=== PATIENT | male | born 1985 | race Caucasian/White ===

== ENCOUNTER 2020-01-13 09:42 | Emergency (ER) | payer OTHER, MEDICAID, SELFPAY ==
[2020-01-13 09:48] VITALS: BP 148/84; PULSE 78; RESP 16; TEMP 36.2; O2SAT 98
--- NOTE | 2020-01-13 10:12 | W.ED.GENAD ---
Discharge Plan Disposition Patient Disposition: HOME Condition: Stable Discharge Details Chief Complaint: Sorethroat Clinical Impression: Flu Primary Care Provider: Abdoul Briceño ED Provider: Felix Resendiz Discharge Instructions Instructions: Influenza (ED) Additional Instructions: Flu be positive. Negative rapid strep, culture pending. [id number] medications as directed for symptomatic control. Rest. Plenty of fluids to avoid dehydration. Please watch for new or worsening symptoms and return to the ER for any concerns. You should avoid public places until he has been asymptomatic for 24 hours as the flu is highly contagious. Discharge Data Discharge Date/Time-TO BE ENTERED AT DEPARTURE: 01/13/20 10:51 Medical Decision Making 34-year-old male presenting with febrile illness, cough, ear pain, sore throat, myalgias for 4 days. He appears well, nontoxic. The patient does make his expectations known, he would like antibiotics. I explained to him that this very well could be viral and antibiotics would not be appropriate. He is primarily concerned for strep throat so we can test for that problem also test for the flu. Lungs are clear to auscultation, O2 sats are 98% on room air, and he is afebrile, low suspicion for pneumonia, will not obtain chest x-ray. Flu B+, rapid strep negative, culture pending. Discussed findings with patient. Discussed that he is outside the window for Tamiflu therapy and there is no clear indication for antibiotic therapy. He does understand that throat culture is pending and if positive he will be notified for antibiotics Medical Records Medical records reviewed: Yes I reviewed the patient's medical records. Lab Data Lab results reviewed: Yes I reviewed the patient's lab results. Lab results narrative: 01/13/20 09:58 Nose Influenza Types A,B Antigen - Final 01/13/20 09:50 Pharynx Streptococcus Screen (BOOGIE) - Pending HPI General Mode of arrival: ambulatory. Date/Time Provider Initiated Documentation: 01/13/20 09:53. Limitations to Documentation: no limitations. Information obtained by: patient. HPI Narrative: Patient reports a 4-day history of mild dry cough, bilateral ear pain and pressure and a sore throat. He reports seeing white spots on his throat and reports whenever I get this I need antibiotics to feel better. Patient did take ibuprofen around 830 this morning. Patient denies any significant past medical history. Reports myalgias as well. He does not smoke. Denies any recent sick contacts Denies abdominal pain, nausea, vomiting Related Data Allergies Allergy/AdvReac Type Severity Reaction Status Date / Time No Known Allergies Allergy Unverified 01/13/20 09:51 General Stated Complaint: Sorethroat MICHELLE: 4 Review of Systems Constitutional Constitutional: Reports fatigue, Reports fever(s) and Denies headache(s) Eyes Eyes: Denies eye discharge ENT Ears, Nose, Mouth, and Throat: Reports otalgia, Denies headache(s) and Reports sore throat Cardiovascular Cardiovascular: Denies chest pain and Denies dyspnea Respiratory Respiratory: Reports cough and Denies dyspnea Gastrointestinal Gastrointestinal: Denies abdominal pain, Denies nausea and Denies vomiting Musculoskeletal Musculoskeletal: Reports myalgias Integumentary/Breasts Skin/Breast: Denies rash Neurologic Neurologic: Denies headache(s) Endocrine Endocrine: Reports fatigue REPLACED BY [facility] Social History Smoking/Tobacco Use Status: Never Drug use: Never Substance use type: does not use Do you feel safe at home: Yes Do you feel safe in your relationship?: Yes Exam Const General: cooperative, healthy appearing, comfortable and no acute distress Orientation: alert and awake HENMT Head: normal to inspection, normocephalic and atraumatic Ears: external ears normal, TM's normal bilaterally and TM normal on the left Mouth: moist mucous membranes Teeth and gingiva: dentition normal Throat: tonsils normal, posterior oropharynx abnormal (Minimal) erythema and exudates, uvula not displaced and no uvular edema Eyes Conjunctivae: conjunctivae normal Neck Neck: normal visual inspection, full ROM, no lymphadenopathy, no meningeal signs, trachea midline and supple Resp Effort & Inspection: normal respiratory effort and able to speak in complete sentences Auscultation: clear to auscultation bilaterally Cardio Rate: regular rate Rhythm: regular rhythm Skin General skin exam: no rashes or lesions noted Neuro General: alert, awake, moves all extremities and no focal motor deficits Motor: muscle tone normal throughout Sensory Exam: no sensory deficits noted Extrem General: normal to inspection Psych Appearance: grossly normal Mental Status: mental status grossly normal Course Vital Signs Vital signs: Vital Signs Temperature 36.2 C L 01/13/20 09:48 Pulse 78 01/13/20 09:48 Respiratory Rate 16 01/13/20 09:48 Blood Pressure 148/84 H 01/13/20 09:48 Pulse Oximetry 98 01/13/20 09:48 Temperature 36.2 C L 01/13/20 09:48 Temperature Source Tympanic 01/13/20 09:48 Pulse 78 01/13/20 09:48 Respiratory Rate 16 01/13/20 09:48 Respiratory Effort Non-Labored 01/13/20 09:52 Blood Pressure 148/84 H 01/13/20 09:48 Blood Pressure Position Sitting 01/13/20 09:48 Pulse Oximetry 98 01/13/20 09:48 Oxygen Delivery Method Room Air 01/13/20 09:48 Oxygen Flow Rate 0 01/13/20 09:48 Pain Level 8 01/13/20 09:48 Lab/Test Results Lab/Test Results: 01/13/20 09:58 Nose Influenza Types A,B Antigen - Pending POC Strep Test-JOCELYN(Rapid) Start: 01/13/20 09:54 Freq: .Rapid Strep Test Status: Active Protocol: Document 01/13/20 09:54 (Rec: 01/13/20 09:54 [id number]) Strep test-JOCELYN(Rapid)-POC POC-Strep test-JOCELYN (Rapid) Negative POC-Strep test-JOCELYN (Rapid) Negative
[2020-01-13 10:48] VITALS: BP 138/62; PULSE 73; RESP 18; TEMP 36.4; O2SAT 98
== END 2020-01-13 10:51 | disposition home or self-care (01) ==
PROVIDERS: Emergency Provider Physician Assistant; PCP Internal Medicine
DX: J10.1 Influenza due to other identified influenza virus with other respiratory manifestations (principal)
CPT/HCPCS: 87449; 87880; 99282; 87081; 99283

== ENCOUNTER 2020-04-08 19:41 | Emergency (ER) | payer OTHER, MEDICAID, SELFPAY ==
--- NOTE | 2020-04-08 19:45 | DI.RAD_ITS ---
EXAM: XR ANKLE LT COMPLETE CLINICAL HISTORY: pain, injury mid to distal gillespie TECHNIQUE: 2D digital imaging was performed. COMPARISON: CR RIGHT ANKLE COMPLETE from 05/27/2010 FINDINGS: There is soft tissue swelling around the malleoli, greater medially. There is slight deformity of th e distal fibula which could indicate an old fracture deformity. No ankle mortise widening or talar d ome defect is seen. IMPRESSION: No acute fracture is identified. Soft tissue swelling.
--- NOTE | 2020-04-08 19:45 | DI.RAD_ITS ---
EXAM: XR TIB/FIB LT CLINICAL HISTORY: pain TECHNIQUE: 2D digital imaging was performed. COMPARISON: CR RIGHT TIB/FIB from 05/27/2010 FINDINGS: There is a spiral fracture of the proximal fibula with slight displacement and no significant angula tion. There is some deformity of the mid to distal fibula, consistent with an old healed fracture. No tibial fracture is seen. The knee and ankle are unremarkable as visualized. There is a metallic foreign body in the soft tissues of the posterior upper calf region. IMPRESSION: Mildly displaced proximal fibular fracture. BB in the soft tissues of the upper calf.
[2020-04-08 19:46] VITALS: BP 142/77; PULSE 78; RESP 14; TEMP 37; O2SAT 98
--- NOTE | 2020-04-08 19:52 | ED.GENADUL_ITS ---
Discharge Plan Disposition Patient Disposition: HOME Condition: Stable Discharge Details Chief Complaint: Orthopedic Clinical Impression: Fibula fracture Primary Care Provider: Abdoul Briceño ED Provider: Linda Rubio Discharge Instructions Instructions: Leg Fracture (ED) Additional Instructions: Rest. Activities as tolerated. Elevate injury to prevent swelling. Ice to the area of discomfort for 15 min. 3-5 times daily. Motrin every 8 hours with food or Tylenol every 6 hours for soreness if needed over the counter for comfort. Limit weightbearing. Use fracture boot and crutches as discussed Followup with orthopedic doctor as discussed for reevaluation. Call orthopedic doctor for reevaluation. Return for any worsening or concerns sooner if needed. Referrals: Milad Crawford MD [ [facility]AFF PHYSICIAN] - Discharge Data Discharge Date/Time-TO BE ENTERED AT DEPARTURE: 04/08/20 20:55 Medical Decision Making 34-year-old patient presents to the emergency room with complaints of left lower leg pain after he landed wrong after he began to get dragged by his horse whom he had a hold of by the main. Patient reports he felt a snap in his left lower leg. He is presenting to the emergency room concern for possible fracture. Patient has mid to distal tib-fib tenderness and mild ankle pain with palpation. No open wounds. Compartments are soft. Distal neurovascularly intact. Sensation intact. Benign foot exam. Patient's pulses are intact. We will plan to check x-ray of patient's tib-fib and ankle. Patient offered Motrin or Tylenol declines at this time. Patient has no other focal complaints or other injuries reported. Patient's x-ray results reviewed. Spoke with the patient regarding his x-ray results. Patient made aware of fracture findings and concern for possible nondisplaced posterior malleolus fracture. On reviewing patient's images his ankle mortise appears grossly intact. Spoke with Dr. Crawford regarding patient's x-ray findings. He recommends regarding the posterior and distal fibular fracture and concern of a possible malleolus injury a fracture boot, crutches and follow-up in the office. He does report patient is able to bear mild weight if he chooses. Spoke with patient regarding these recommendations. Patient reports he has crutches, reports he is a fracture boot. Patient requests only to see his images. I offered multiple ways for this patient to get access to his images have offered to make him a disc for home. Patient insisting on me emailing him the images. I am unable to email this patient images given our technology. Patient extremely agitated regarding my options for providing x-ray views. Patient walking around the emergency room without splinting. Patient becoming quite aggressive and agitated. patient provided discharge instructions. The patient was stable and requested discharge. Prior to discharge, my usual and customary return precautions were reviewed with the patient - this included follow-up instructions and reasons to return to the Emergency Department if conditions worsens, does not improve as expected, or other new concerns arise. HPI General Date/Time Provider Initiated Documentation: 04/08/20 19:43 . HPI Narrative: This is a 34-year-old patient presenting to the emergency room for complaints of left lower leg injury. Patient reports he grabbed his horses kirill and his horse ran off. Patient's leg landed wrong on the ground he felt a snap in his distal and mid gillespie. Patient is concerned that he fractured his lower leg. Patient denies striking his head neck or back. Patient denies any significant fall to the ground. Patient denies upper extremity injury. Denies any right leg injury. Has no chest pain, difficulty breathing shortness of other wheezing. Denies any cough. Denies abdominal pain or distention. Denies any sites of bruising or wounds. Patient denies numbness, tingling or weakness. Difficulty ambulating as left lower leg seems unstable. Patient specifically points to the mid to distal gillespie as site of maximum pain. Patient does complain of mild ankle pain. Denies any foot pain associated. Denies any pain proximal to the knee. No other concerns or complaints at this time. Related Data Allergies Allergy/AdvReac Type Severity Reaction Status Date / Time No Known Allergies Allergy Unverified 01/13/20 09:51 General Stated Complaint: Orthopedic MICHELLE: 4 Review of Systems All systems reviewed & are unremarkable except as noted in HPI and below [facility] Social History Smoking/Tobacco Use Status: Never Drug use: Never Substance use type: does not use Do you feel safe at home: Yes Do you feel safe in your relationship?: Yes Exam Narrative Exam Narrative: CONST: Healthy appearing patient, in no acute distress. Well hydrated. Alert and oriented. EYES: General normal appearance. Alignment normal. Eyelids normal. Conjunctiva normal. NECK: Normal visual inspection. FROM. Trachea midline. No Midline tenderness. CHEST: Normal insepection of the chest. RESP: Normal respiratory effort. Speaking full sentences. No cough. No audible wheezing. No retractions. CARDIO: No JVD. Back: No midline tenderness noted throughout the cervical, thoracic or lumbar spine. MUSCULOSKELETAL: Normal Gait. FROM of upper extremities. Right leg benign. Left leg internal/external rotation of the hip without pain. No femur pain with palpation. No knee pain with palpation. No proximal tib-fib pain with palpation. Mid and distal pain with palpation of the lower leg. Calf is soft and nontender. No significant Achilles tenderness. Achilles tendon intact. Mild medial lateral ankle pain with palpation. No foot pain noted on exam. P atient has intact dorsal pedis pulse. No open wounds. Sensation intact throughout the foot. SKIN: Normal. Dry. No rashes. NEURO: Alert and awake. Speech clear. PSYCH: Normal affect. Cooperative. Course Vital Signs Vital signs: Vital Signs Temperature 37.0 C 04/08/20 19:46 Pulse 78 04/08/20 19:46 Respiratory Rate 14 04/08/20 19:46 Blood Pressure 142/77 H 04/08/20 19:46 Pulse Oximetry 98 04/08/20 19:46 Temperature 37.0 C 04/08/20 19:46 Temperature Source Skin 04/08/20 19:46 Pulse 78 04/08/20 19:46 Respiratory Rate 14 04/08/20 19:46 Blood Pressure 142/77 H 04/08/20 19:46 Blood Pressure Position Sitting 04/08/20 19:46 Pulse Oximetry 98 04/08/20 19:46 Oxygen Delivery Method Room Air 04/08/20 19:46 Oxygen Flow Rate 0 04/08/20 19:46 Pain Level 9 04/08/20 19:46
--- NOTE | 2020-04-08 20:24 | DI.VRAD_ITS ---
PROCEDURE INFORMATION: Exam: XR Left Ankle Exam date and time: 04/08/2020 7:59 PM Age: 34 years old Clinical indication: Ankle and lower leg; Left; Patient HX: Pain, injury to lateral lower leg TECHNIQUE: Imaging protocol: XR Left ankle. Views: 3 or more views. COMPARISON: No relevant prior studies available. FINDINGS: Bones/joints: There appears to be a nondisplaced oblique fracture of the distal fibula. No dislocation. There is mild cortical irregularity along the posterior tibia on the lateral view. Soft tissues: There is [id number] soft tissue swelling. IMPRESSION: 1. Distal fibula fracture. 2. Cannot exclude a nondisplaced posterior malleolus fracture. Dictated and Authenticated by: Vance Buck MD. Ordering:THOMAS Mckeon MD
--- NOTE | 2020-04-08 20:24 | DI.VRAD_ITS ---
PROCEDURE INFORMATION: Exam: XR Left Tibia and Fibula Exam date and time: 04/08/2020 8:01 PM Age: 34 years old Clinical indication: Left; Patient HX: Pain, injury to lateral lower leg TECHNIQUE: Imaging protocol: XR Left tibia and fibula. Views: 2 views. COMPARISON: No relevant prior studies available. FINDINGS: Bones/joints: There is a mildly displaced oblique fracture of the proximal fibula. Soft tissues: There is a 4 mm radiopaque foreign body within the calf. IMPRESSION: 1. Proximal fibula fracture 2. Radiopaque foreign body Dictated and Authenticated by: Vance Buck MD. Ordering:THOMAS Mckeon MD
== END 2020-04-08 20:55 | disposition home or self-care (01) ==
PROVIDERS: Emergency Provider Physician Assistant; PCP Internal Medicine
DX: S82.442A Displaced spiral fracture of shaft of left fibula, initial encounter for closed fracture (principal); X50.9XXA Other and unspecified overexertion or strenuous movements or postures, initial encounter; R45.1 Restlessness and agitation
CPT/HCPCS: 29515; 99284; 73590; 73610; L4361

== ENCOUNTER 2020-04-25 09:15 | Outpatient (CLI) | payer OTHER, MEDICAID, SELFPAY ==
--- NOTE | 2020-04-25 09:00 | DI.RAD_ITS ---
EXAM: XR TIB/FIB LT and XR ankle LT 2 V CLINICAL HISTORY: f/u. TECHNIQUE: 2D digital imaging was performed COMPARISON: CR,XR XR ANKLE LT COMPLETE from 04/08/2020 CR,XR XR TIB/FIB LT from 04/08/2020 FINDINGS: BONES: There has been no change in alignment of the mildly displaced proximal left fibular fracture. There is a longitudinal lucency through the posterior malleolus suspicious for nondisplaced fracture . No bony destructive lesion is seen. Visualized portion of knee and ankle joints are unremarkable. SOFT TISSUE: The small BB in the soft tissues of the posterior upper calf is again noted. IMPRESSION: 1. Stable mildly displaced proximal left fibular fracture. 2. Findings suspicious for nondisplaced posterior malleolar fracture. DATA REPOSITORY: RADIATION DOSE DELIVERED:
== END 2020-04-25 09:35 ==
PROVIDERS: PCP Internal Medicine; Referring Provider Internal Medicine; Visit Provider Orthopaedic Surgery
DX: S82.442D Displaced spiral fracture of shaft of left fibula, subsequent encounter for closed fracture with routine healing (principal); S99.912A Unspecified injury of left ankle, initial encounter; M89.8X7 Other specified disorders of bone, ankle and foot
CPT/HCPCS: 73590; 73600

== ENCOUNTER 2020-04-25 11:27 | Outpatient (CLI) | payer OTHER, MEDICAID, SELFPAY ==
[2020-04-26 19:08] LABS: COVID-19 RT-PCR UVMMC Result Negative (Negative)
== END 2020-04-25 11:47 ==
PROVIDERS: PCP Internal Medicine; Visit Provider Orthopaedic Surgery
DX: Z11.59 Encounter for screening for other viral diseases (principal); Z01.818 Encounter for other preprocedural examination
CPT/HCPCS: U0003

== ENCOUNTER 2020-04-26 11:17 | Day surgery (SDC) | payer OTHER, MEDICAID, SELFPAY ==
[2020-04-26 11:38] VITALS: BP 148/100; PULSE 78; RESP 20; TEMP 36.4; O2SAT 99
[2020-04-26] MEDS: Lactated Ringers 1,000 ML 80 ML IV (12:15)
--- NOTE | 2020-04-26 14:06 | DI.RAD_ITS ---
EXAM: XR ANKLE LT 2V CLINICAL HISTORY: Closed Maisonneuve fracture of LEFT fibula TECHNIQUE: 2D and realtime digital imaging was performed. CONTRAST MATERIAL: Refer to procedure report. COMPARISON: CR XR ANKLE LT 2V from 04/25/2020 FINDINGS: Fluoroscopy was provided for Dr. Crawford during the performance of a fixation of the distal tibial an d fibular syndesmosis.. Please refer to the procedure report for complete details. Fluoro time: 30 seconds IMPRESSION: RADIATION DOSE DELIVERED:
--- NOTE | 2020-04-26 14:11 | W.PM.DSUDISC ---
Discharge Plan Disposition Patient Disposition: HOME Condition: Good Discharge Details Attending Provider: Milad Crawford Primary Care Provider: Abduol Briceño Home Meds and New Rx's Prescriptions: New oxycodone-acetaminophen 5-325 mg tablet 1 tab PO Q6H PRN (Reason: pain) Qty: 10 RF: 0 ibuprofen 800 mg tablet 800 mg PO TID Qty: 30 RF: 0 Continued oxycodone 5 mg tablet 5 mg PO QID PRN (Reason: pain) Qty: 7 RF: 0 ibuprofen 800 mg Tablet 800 mg PO DAILY RF: 0 Discharge Instructions Additional Instructions: Elevate L ankle when sitting. Crutches to walk. May put as much weight on R foot as your discomfort allows. May remove walking boot 3-4 times/day to move R ankle. After 48 hours, remove dressings, shower, and get incisions wet. Leave incisions uncovered when they are dry and sealed. Wear cotton athletic stocking in the brace to absorb perspiration. Follow up with in 2 weeks. Referrals: Milad Crawford MD [ [facility] STAFF PHYSICIAN] - (f/u in 2 weeks.) Equipment/Supplies: Splint Activity:: Activity as Tolerated Remove Dressings/Wound Care:: 48 hours Shower/Bathe:: 48 hours Diet:: As Tolerated Discharge Orders Discharge Orders: Discharge Order (Routine); Ordered 04/26/20 Ordered By: Milad Crawford DS: Diagnosis Discharge Diagnosis (1) Closed Maisonneuve fracture of fibula: Status: Acute
[2020-04-26 14:33] VITALS: BP 156/80; PULSE 69; RESP 20; TEMP 37.2; O2SAT 95
--- NOTE | 2020-04-26 15:43 | W.PM.OP ---
Date of service: 04/26/20 Time of Service: 15:43 Operative Note Operative Note DATE OF PROCEDURE: 04/26/20 PRE-OP DIAGNOSIS: Maisonneuve fracture of fibula left POST-OP DIAGNOSIS: same PROCEDURE: Insertion of 2 syndesmotic screws left ankle SURGEON: Milad Crawford ANESTHESIA: regional and other ESTIMATED BLOOD LOSS: 0 PATHOLOGY: none sent COMPLICATIONS: None Patient was transported to: same day Patient's condition: stable Implants: Two 4.0 mm cancellous screws Indications: Is a 34-year-old white male who was injured try to get on a horse a week ago. While his left foot was planted he sustained the supination external rotation injury to his left ankle. This resulted in a fracture of the proximal fibula with tear of the deltoid ligament. The disruption of the deltoid ligament was confirmed with gravity stress views of the ankle. Close reduction with insertion of a percutaneous syndesmotic screws was recommended to restore the anatomy of the ankle mortise. This would be necessary for good long-term outcome. Risk on case procedure explained to the patient detail preop Procedure Description: Patient was taken the operating room on 04/26/2020 where he was placed supine operating table. Ankle block anesthesia was performed with good anesthesia resulting. A roll was placed under his left buttock. The left foot ankle and lower leg were prepped and draped free in usual sterile fashion. Using a C-arm for localization I marked on the lateral fibula where I made a stab wound about a centimeter long directly down to the bone of the fibula. Again using C-arm image localization I drilled across the fibula and into the tibia parallel to the tibial plafond and just proximal to the old epiphyseal scar on the distal tibia. I did not penetrate the medial cortex of the tibia. I then inserted a 55 mm 4 oh cancellus screw across the fibula into the tibia. The ankle was dorsiflexed by my ophthalmic medical assistant as the cancellus screw was maximally tightened. I checked the ankle mortise with the C-arm image intensifier. The medial clear space had been reduced so was anatomic. I decided to place a second screw more proximally to protect the distal screw. In a similar fashion I inserted a tricortical 4 oh cancellus screw 50 mm long. This was done after making a separate stab wound proximal to the first incision. Under C-arm image intensification guidance I drilled across the fibula into the tibia. I measured the depth and felt a 50 mm length was adequate. The screw was then inserted and maximally tightened with the ankle dorsiflexed again. I then rechecked the first screw and made sure it was still tight and had not loosened. Incisions were irrigated with saline solution. The skin margins were infiltrated with point to 5% Marcaine solution and the I infiltrated the periosteum around the screws as well. The skin edges approximated with a single 4-0 nylon suture for each incision. Incisions were dressed with Xeroform gauze sterile gauze 4 x 4's and wrapped with a 2 inch Henry bandage. I then placed him in a Aircast fracture walking brace. He tolerated suture well was discharged back to day surgery unit in good condition. Patient was discharged home from day surgery unit with instructions to elevate his left ankle when sitting. He is to use crutches to walk and may be weightbearing to tolerance of pain on the left leg. Get a prescription for ibuprofen 800 mg p.o. 3 times daily for 10 days. He is given a second prescription for oxycodone with APAP 03/19/2025 1 tablet every 6 hours as needed for breakthrough pain. In 48 hours he can remove his dressing shower and get incision wet. He may then take his ankle out of the brace 3-4 times a day to perform active range of motion exercises. He should follow-up with Dr. Crawford in 2 weeks.
== END 2020-04-26 15:05 | disposition home or self-care (01) ==
PROVIDERS: PCP Internal Medicine; Visit Provider Orthopaedic Surgery
PROC: (CPT 27829; principal; 2020-04-26 13:00)
DX: S82.863A Displaced Maisonneuve's fracture of unspecified leg, initial encounter for closed fracture (principal); X50.0XXA Overexertion from strenuous movement or load, initial encounter; Y93.52 Activity, horseback riding
CPT/HCPCS: 27829; 76000; 73600; J1885; J2250; J2704; L4361

== ENCOUNTER 2020-05-10 12:11 | Outpatient (CLI) | payer OTHER, MEDICAID, SELFPAY ==
--- NOTE | 2020-05-10 12:00 | DI.RAD_ITS ---
EXAM: XR ANKLE LT COMPLETE CLINICAL HISTORY: f/u TECHNIQUE: COMPARISON: CR XR ANKLE LT 2V from 04/25/2020 XR ANKLE LT 2V from 04/26/2020 FINDINGS: Three views were obtained. There are fixation screws transfixing the tibiofibular joint, no change i n alignment comparison with intraoperative films April 26. The ankle mortise appears within normal limits. IMPRESSION:
== END 2020-05-10 12:31 ==
PROVIDERS: PCP Internal Medicine; Referring Provider Internal Medicine; Visit Provider Orthopaedic Surgery
DX: S82.442D Displaced spiral fracture of shaft of left fibula, subsequent encounter for closed fracture with routine healing (principal)
CPT/HCPCS: 73610

== ENCOUNTER 2020-06-07 09:58 | Outpatient (CLI) | payer OTHER, MEDICAID, SELFPAY ==
--- NOTE | 2020-06-07 09:45 | DI.RAD_ITS ---
EXAM: XR ANKLE LT COMPLETE and XR tib fib LT CLINICAL HISTORY: f/u surgery TECHNIQUE: 2D digital imaging was performed. COMPARISON: CR XR TIB/FIB LT from 04/25/2020 CR XR ANKLE LT COMPLETE from 05/10/2020 FINDINGS: BONES: There has been no change in alignment of the proximal left fibular fracture. There is callus formation about the fracture site consistent with interval healing. Two stable syndesmotic screws ar e seen distally. No bony destructive lesion is seen. No new fracture or dislocation. JOINTS:The ankle mortise is normally aligned. SOFT TISSUE: A BB is again seen in the soft tissues posteriorly. IMPRESSION: Stable left leg and ankle. DATA REPOSITORY: RADIATION DOSE DELIVERED:
== END 2020-06-07 10:18 ==
PROVIDERS: PCP Internal Medicine; Referring Provider Internal Medicine; Visit Provider Orthopaedic Surgery
DX: S82.402D Unspecified fracture of shaft of left fibula, subsequent encounter for closed fracture with routine healing (principal)
CPT/HCPCS: 73590; 73610

== ENCOUNTER 2020-06-26 10:54 | Day surgery (SDC) | payer OTHER, MEDICAID, SELFPAY ==
[2020-06-26 11:01] VITALS: BP 152/100; PULSE 65; RESP 16; TEMP 36.6; O2SAT 99
--- NOTE | 2020-06-26 12:12 | W.PM.DSUDISC ---
Discharge Plan Disposition Patient Disposition: HOME Condition: Good Discharge Details Reason For Visit: Remove screws L ankle Attending Provider: Milad Crawford Primary Care Provider: Abdoul Briceño Home Meds and New Rx's Prescriptions: Continued hydroxyzine HCl 25 mg tablet 25 mg PO QHS PRNRF: 0 ibuprofen 800 mg tablet 800 mg PO TID Qty: 30 RF: 0 Discharge Instructions Additional Instructions: Limit walking on L foot today. Try to elevate L ankle on 1-2 pillows when sitting. Apply icebag to surgical site on outside of L ankle 4 times/day for 1 hour each time to decrease swelling and pain. May remove tabatha wrap, shower, and get dressing wet after 48 hours. Don't take off the clear adhesive dressing. Let the dressing come loose by itself, then you can remove the dressing. Tomorrow, may put weight on L leg as much as discomfort allows. Take ibuprofen for pain. Follow up with in 2 weeks. Stand Alone Forms: Thong Perales (DSU) Referrals: Milad Crawford MD [ [facility] STAFF PHYSICIAN] - (f/u in 2 weeks) Activity:: Activity as Tolerated Remove Dressings/Wound Care:: 72 hours Shower/Bathe:: 48 hours Diet:: As Tolerated Discharge Orders Discharge Orders: Discharge Order (Routine); Ordered 06/26/20 Ordered By: Milad Crawford DS: Diagnosis Discharge Diagnosis (1) Closed Maisonneuve fracture of fibula: Status: Acute
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
== END 2020-06-26 12:33 | disposition home or self-care (01) ==
PROVIDERS: PCP Internal Medicine; Visit Provider Orthopaedic Surgery
PROC: (CPT 20680; principal; 2020-06-26 12:00)
DX: S82.86 Maisonneuve's fracture (principal); Z46.89 Encounter for fitting and adjustment of other specified devices; X58.XXXD Exposure to other specified factors, subsequent encounter; F17.210 Nicotine dependence, cigarettes, uncomplicated
CPT/HCPCS: 20680

== ENCOUNTER 2020-07-11 09:05 | Outpatient (CLI) | payer OTHER, MEDICAID, SELFPAY ==
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
== END 2020-07-11 09:25 ==
PROVIDERS: PCP Internal Medicine; Referring Provider Internal Medicine; Visit Provider Orthopaedic Surgery
DX: S82.402A Unspecified fracture of shaft of left fibula, initial encounter for closed fracture (principal)
CPT/HCPCS: 73590

== ENCOUNTER 2020-08-23 00:05 | Inpatient (IN) | payer OTHER, MEDICAID, SELFPAY ==
[2020-08-23] VITALS (36 sets, daily range): BP systolic 118–154; BP diastolic 55–97; PULSE 61–91; RESP 9–25; TEMP 36.4–37.8; O2SAT 93–100
--- NOTE | 2020-08-23 00:11 | NUR.NOTE ---
Nursing Note: FAST exam performed by Dr Alvarez.
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
[2020-08-23 00:29] LABS: Abs Immature Grans 0.02 10^3/uL (0.0-0.06); Absolute Basophil Count 0.06 10^3/uL (0.0-0.2); Absolute Eosinophil Count 0.21 10^3/uL (0.0-0.7); Absolute Lymphocyte Count 2.78 10^3/uL (1.2-3.4); Absolute Monocyte Count 0.61 10^3/uL (0.1-0.8); Absolute Neutrophil Count 4.55 10^3/uL (1.2-6.7); Basophils % 0.7; Eosinophils % 2.6; HCT 46.1 % (40.0-50.0); HGB 15.8 g/dL (13.5-17.5); Immature Grans % 0.2; Lymphocytes % 33.8; MCH 33.2 pg (27.0-33.0); MCHC 34.3 % (32.0-36.0); MCV 96.8 fL (80-95); Monocytes % 7.4; Neutrophils % 55.3; Nucleated RBC 0 %; Platelet Count 215 10^3/uL (130-400); RBC 4.76 10^6/uL (4.36-5.78); RDW 11.5 % (11.8-14.1); RDW-SD 41.2 fL; WBC 8.23 10^3/uL (4.4-10.8)
[2020-08-23 00:31] LABS: Bilirubin Negative (Negative); Blood Negative (Negative); Clarity Clear (Clear); Glucose Negative (Negative); Ketones Negative (Negative); Leukocyte Esterase Negative (Negative); Nitrite Negative (Negative); Urobilinogen 0.2 EU/dL (Up TO 0.2); pH 5.5 (5-8)
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
[2020-08-23 00:39] LABS: ETHANOL BLOOD 184.7 mg/dL (<3)
[2020-08-23 00:39] LABS: Bacteria Rare HPF (Negative); C & S Indicated? No; Casts 0-2 Hyaline LPF (Negative); Crystals Negative HPF (Negative); Epithelial Cells Rare HPF (Negative); Mucus Trace (Negative); RBC Negative HPF (0-2); WBC Negative HPF (0-5)
[2020-08-23] MEDS: Omnipaque 350 MG/ML 100 ML BTL IJ (00:43)
[2020-08-23 00:44] LABS: ALT 62 U/L (16-63); AST 34 U/L (15-37); Albumin 3.7 g/dL (3.4-5.0); Alkaline Phosphatase 74 U/L (46-116); Anion Gap 8.5 mmol/L (3-11); BUN 7 mg/dL (7-18); Bilirubin, Total 0.5 mg/dL (0.2-1.0); CO2 27.5 mmol/L (21.0-32.0); CREATININE 1.05 mg/dL (0.70-1.30); Calcium 8.6 mg/dL (8.5-10.1); Chloride 101 mmol/L (98-107); Glucose 113 mg/dL (74-106); Lipase 143 U/L (73-393); Potassium 3.8 mmol/L (3.5-5.1); Sodium 137 mmol/L (136-145); Total Protein 6.9 g/dL (6.4-8.2)
[2020-08-23] MEDS: Normal Saline - Diluent 50 ML VIAL IV (00:44)
[2020-08-23 00:46] LABS: *AMPHETAMINES SCREEN URINE Negative (Negative); *BARBITURATES SCREEN URINE Negative (Negative); *BENZODIAZEPINES SCREEN URINE Negative (Negative); Cannabinoids THC Negative (Negative); Cocaine Screen,Urine Negative (Negative); METHADONE URINE SCREEN Negative (Negative); OPIATES URINE SCREEN Negative (Negative)
[2020-08-23 00:49] LABS: Tricyclic Antidepressants Negative (Negative)
[2020-08-23] MEDS: Normal Saline 1,000 ML 1000 ML IV ×2 (00:49→02:32)
--- NOTE | 2020-08-23 00:50 | NUR.NOTE ---
Nursing Note: Gauze placed over left abdomen wound.
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
--- NOTE | 2020-08-23 01:18 | NUR.NOTE ---
Nursing Note: Patient reports brother on his way to get patient to bring him to his house as he has still not been able to get ahold of . Patient reports I'll come back. Dr Hart at bedside for assessment.
[2020-08-23] MEDS: ceFAZolin 500 MG in Normal Saline 50 ML 100 MG IVPB (01:41)
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
[2020-08-23] MEDS: ACETAMINOPHEN 1,000 MG/100 ML BTL 400 MG IVPB (03:55)
[2020-08-23 05:41] LABS: ETHANOL BLOOD 56.9 mg/dL (<3)
[2020-08-23] MEDS: FentaNYL/ROPIvacaine 2 mcg/ml and 0.1% 200 ML CADD Cassette EP ×2 (07:26→23:20)
[2020-08-23] MEDS: Lactated Ringers 1,000 ML 30 ML IV (07:35)
[2020-08-23] MEDS: ceFAZolin 2 GM/50 ML BAG IVPB ×3 (07:35→23:18)
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
[2020-08-23] MEDS: Lactated Ringers 1,000 ML 125 ML IV ×2 (10:35→19:00)
[2020-08-23] MEDS: Enoxaparin 40 MG/0.4 ML SYR SC (11:50)
--- NOTE | 2020-08-23 12:15 | RT.EKG_ITS ---
APPROVED REPORT Exam: Resting ECG Patient Location: I HR:70 bpm ECG Measurements Heart Rate 70 AXIS ID 136 P 29 QRSd 88 QRS 81 QT 387 T 48 QTc 416 Conclusion Sinus rhythm...normal P axis, V-rate 60- 99
[2020-08-23] MEDS: LORazepam 2 MG/ML VIAL 1 MG IVP ×2 (14:29→20:18)
[2020-08-23] MEDS: Normal Saline Flush 10 ML SYR (20:18)
[2020-08-24] VITALS (39 sets, daily range): BP systolic 130–169; BP diastolic 68–88; PULSE 72–118; RESP 16–32; TEMP 36.8–38.2; O2SAT 85–98
[2020-08-24] MEDS: Lactated Ringers 1,000 ML 125 ML IV (02:52)
[2020-08-24] MEDS: LORazepam 2 MG/ML VIAL 1 MG IVP ×2 (03:02→23:44)
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
[2020-08-24 06:26] LABS: Abs Immature Grans 0.07 10^3/uL (0.0-0.06); Absolute Basophil Count 0.04 10^3/uL (0.0-0.2); Basophils % 0.2; Eosinophils % 0.1; HCT 44.9 % (40.0-50.0); HGB 15.5 g/dL (13.5-17.5); Immature Grans % 0.4; MCH 33.7 pg (27.0-33.0); MCHC 34.5 % (32.0-36.0); MCV 97.6 fL (80-95); MPV 9.5 fL (8.0-11.0); Monocytes % 4.8; Neutrophils % 84.5; Nucleated RBC 0 %; Platelet Count 179 10^3/uL (130-400); RDW 11.6 % (11.8-14.1); WBC 19.33 10^3/uL (4.4-10.8)
[2020-08-24 06:34] LABS: Absolute Eosinophil Count 0.02 10^3/uL (0.0-0.7); Absolute Lymphocyte Count 1.93 10^3/uL (1.2-3.4); Absolute Monocyte Count 0.93 10^3/uL (0.1-0.8); Absolute Neutrophil Count 16.33 10^3/uL (1.2-6.7)
[2020-08-24 06:39] LABS: ALT 36 U/L (16-63); AST 21 U/L (15-37); Alkaline Phosphatase 56 U/L (46-116); Anion Gap 7.6 mmol/L (3-11); BUN 7 mg/dL (7-18); Bilirubin, Total 1.1 mg/dL (0.2-1.0); CO2 28.4 mmol/L (21.0-32.0); CREATININE 1.02 mg/dL (0.70-1.30); Calcium 8.6 mg/dL (8.5-10.1); Chloride 103 mmol/L (98-107); Glucose 104 mg/dL (74-106); Potassium 3.5 mmol/L (3.5-5.1); Sodium 139 mmol/L (136-145); Total Protein 6.2 g/dL (6.4-8.2)
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
[2020-08-24 08:15] LABS: COVID-19 RT-PCR UVMMC Result Negative (Negative)
[2020-08-24] MEDS: ceFAZolin 2 GM/50 ML BAG IVPB ×3 (08:23→23:32)
[2020-08-24] MEDS: MULTIVITAMIN 10 ML, THIAMINE 100 MG, FOLIC ACID 1 MG in DEXTROSE 5%-0.45% SALINE 1,000 ML 42 ML IV (09:02)
[2020-08-24] MEDS: FentaNYL/ROPIvacaine 2 mcg/ml and 0.1% 200 ML CADD Cassette EP ×2 (10:24→20:47)
--- NOTE | 2020-08-24 10:50 | ANES_ITS ---
Date of service: 08/24/20 Time of Service: 10:51 Anesthesia Note Report Anesthesia Note: Epidural maintenance: Pt is in bed with HOB at 45, sleeping. Currently states abdominal pain is ~4- 5/10, and that his shoulder pain is worse. Site is clean/dry/intact with no signs or symptoms of infection. States that when he hits the button for a bolus dose that it does help. He has used 9 PCEA doses in the past 8 hours. Plan to leave infusion (12 ml/hr) and bolus dose (5 mL/15 min) as is and reassess as needed. Discussed plan with RN and pt.
[2020-08-24] MEDS: Lactated Ringers 1,000 ML 83 ML IV (11:55)
[2020-08-24] MEDS: Enoxaparin 40 MG/0.4 ML SYR SC (11:55)
--- NOTE | 2020-08-24 12:41 | PGE_ITS ---
Date of Service Date of service: 08/24/20 Time of Service: 09:45 Assessment and Plan Assessment and plan (1) Descending colon injury: Status: Acute Assessment and plan: Stable, will transfer to Med/Surg D/C NG but keep NPO except few ice chips Advised to ambulate Await bowel activity Subjective Subjective Interval history since last seen: Reports intermittent pain in lower bilateral chest that radiates to shoulders. Incisional pain controlled with epidural Has been taking in a fair amount of ice chips. No flatus yet Exam Narrative Exam Narrative: Uncomfortable mostly related to NG Dressing intact, stable spotting. Abdomen not distended. Objective Last Vital Signs Temp 98.4 F 08/24/20 12:01 Pulse 90 08/24/20 10:01 Resp 21 08/24/20 11:00 BP 169/68 H 08/24/20 10:01 Pulse Ox 94 08/24/20 12:01 Laboratory Results - last 24 hr 08/23/20 08/24/20 08/24/20 07:00 06:15 06:15 WBC 19.33 H RBC 4.60 Hgb 15.5 Hct 44.9 MCV 97.6 H MCH 33.7 H MCHC 34.5 RDW 11.6 L Plt Count 179 MPV 9.5 Immature Gran % 0.4 Neutrophils % 84.5 Lymphocytes % 10.0 Monocytes % 4.8 Eosinophils % 0.1 Basophils % 0.2 Nucleated RBC % 0 Absolute Neutrophils 16.33 H Absolute Lymphocytes 1.93 Absolute Monocytes 0.93 H Absolute Eosinophils 0.02 Absolute Basophils 0.04 Sodium 139 Potassium 3.5 Chloride 103 Carbon Dioxide 28.4 Anion Gap 7.6 BUN 7 Creatinine 1.02 Estimated GFR/1.73 m2 >= 60.00 Glucose 104 Calcium 8.6 Total Bilirubin 1.1 H AST 21 ALT 36 Alkaline Phosphatase 56 Total Protein 6.2 L Albumin 3.0 L COVID-19 PCR Negative Nasopharyn COVID-19 PCR Not Applicable Ref Test Perform Site [place] [facility]
[2020-08-24] MEDS: ACETAMINOPHEN 1,000 MG/100 ML BTL 400 MG IVPB (15:35)
[2020-08-24] MEDS: Normal Saline Flush 10 ML SYR IVP (23:45)
[2020-08-25] VITALS (13 sets, daily range): BP systolic 133–151; BP diastolic 81–95; PULSE 71–93; RESP 16–20; TEMP 36–37.8; O2SAT 94–99
[2020-08-25] MEDS: Lactated Ringers 1,000 ML 125 ML IV ×2 (03:17→20:29)
[2020-08-25 06:22] LABS: HCT 43.9 % (40.0-50.0); MCHC 34.2 % (32.0-36.0); MCV 96.7 fL (80-95); MPV 9.3 fL (8.0-11.0); Platelet Count 163 10^3/uL (130-400); RBC 4.54 10^6/uL (4.36-5.78); RDW 11.6 % (11.8-14.1); RDW-SD 41.6 fL; WBC 16.74 10^3/uL (4.4-10.8)
[2020-08-25] MEDS: ceFAZolin 2 GM/50 ML BAG IVPB ×3 (07:35→23:54)
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
[2020-08-25] MEDS: LORazepam 2 MG/ML VIAL 1 MG IVP (08:29)
[2020-08-25] MEDS: ACETAMINOPHEN 1,000 MG/100 ML BTL 400 MG IVPB ×2 (08:51→18:51)
[2020-08-25] MEDS: FentaNYL/ROPIvacaine 2 mcg/ml and 0.1% 200 ML CADD Cassette EP (09:48)
[2020-08-25] MEDS: MULTIVITAMIN 10 ML, THIAMINE 100 MG, FOLIC ACID 1 MG in DEXTROSE 5%-0.45% SALINE 1,000 ML 125 ML IV (10:07)
--- NOTE | 2020-08-25 10:29 | ANES_ITS ---
Date of service: 08/25/20 Time of Service: 10:29 Anesthesia Note Report Anesthesia Note: Epidural management: Currently POD 2. Found in bed watching TV, epidural infusing. Denies major pain, highest stated 03/26. shoulder discomfort has passed. He is not sure that the epidural is helping and would like it to come out. States that he feels only the front of his thighs are numb. Educated on benefits of the epidural, along with safe ambulation given legs slightly numb, he would however still like a trial of the epidural off. Epidural was turned off at 1024, and his RN was made aware. Plan to leave off and reassess at the end of the day. RN is aware that she s diane call us to restart at anytime if he is having increased pain. Removal of the epidural also will need to be times with his Lovenox dosing.
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
[2020-08-25] MEDS: Enoxaparin 40 MG/0.4 ML SYR SC (12:59)
[2020-08-25] MEDS: LORazepam 1 MG TAB PO/SL (13:08)
--- NOTE | 2020-08-25 15:28 | CHAPLAIN ---
Messi was resting in bed when I visited. He has moved from ICU to Med/Surg. He said he is feeling better now that his pain is controlled. I explained my role and offered support.
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
[2020-08-25] MEDS: Normal Saline Flush 10 ML SYR IVP ×3 (18:02→20:15)
[2020-08-25] MEDS: LORazepam 1 MG TAB PO (18:02)
[2020-08-26] MEDS: FentaNYL/ROPIvacaine 2 mcg/ml and 0.1% 200 ML CADD Cassette EP (00:24)
[2020-08-26 03:11] VITALS: BP 144/76; PULSE 72; RESP 16; TEMP 37.2; O2SAT 95
[2020-08-26] MEDS: Lactated Ringers 1,000 ML 125 ML IV (04:40)
[2020-08-26 07:00] LABS: Abs Immature Grans 0.03 10^3/uL (0.0-0.06); Absolute Eosinophil Count 0.37 10^3/uL (0.0-0.7); Absolute Lymphocyte Count 1.25 10^3/uL (1.2-3.4); Absolute Neutrophil Count 8.55 10^3/uL (1.2-6.7); Basophils % 0.4; Eosinophils % 3.3; HCT 40.3 % (40.0-50.0); HGB 13.8 g/dL (13.5-17.5); Immature Grans % 0.3; Lymphocytes % 11.2; MCH 33.1 pg (27.0-33.0); MCHC 34.2 % (32.0-36.0); MCV 96.6 fL (80-95); MPV 9.6 fL (8.0-11.0); Monocytes % 8.1; Neutrophils % 76.7; Nucleated RBC 0 %; Platelet Count 170 10^3/uL (130-400); RBC 4.17 10^6/uL (4.36-5.78); RDW 11.5 % (11.8-14.1); RDW-SD 40.9 fL; WBC 11.15 10^3/uL (4.4-10.8)
[2020-08-26 07:05] LABS: Absolute Basophil Count 0.04 10^3/uL (0.0-0.2)
[2020-08-26 07:58] VITALS: BP 142/90; PULSE 76; RESP 18; TEMP 36.9; O2SAT 96
[2020-08-26] MEDS: ceFAZolin 2 GM/50 ML BAG IVPB (08:09)
[2020-08-26] MEDS: MULTIVITAMIN 10 ML, THIAMINE 100 MG, FOLIC ACID 1 MG in DEXTROSE 5%-0.45% SALINE 1,000 ML 125 ML IV (08:52)
[2020-08-26 09:34] VITALS: BP 142/90; PULSE 76; RESP 16; O2SAT 96
[2020-08-26] MEDS: ACETAMINOPHEN 1,000 MG/100 ML BTL 400 MG IVPB (11:44)
[2020-08-26] MEDS: Enoxaparin 40 MG/0.4 ML SYR SC (11:44)
[2020-08-26] MEDS: Normal Saline Flush 10 ML SYR IVP ×4 (11:44→19:43)
[2020-08-26] MEDS: Cyclobenzaprine 10 MG TAB PO (12:33)
--- NOTE | 2020-08-26 13:06 | DI.RAD_ITS ---
EXAM: XR CHEST 2V PA LATERAL CLINICAL HISTORY: temp/s/p lapartomy TECHNIQUE: 2D digital imaging was performed. COMPARISON: CR CHEST 2 VIEWS PA,LAT from 04/25/2017 FINDINGS: MEDIASTINUM: Normal. HEART: Normal. PULMONARY VASCULATURE: Normal. LUNGS: Linear bilateral basilar infiltrates are seen. PLEURAL SPACE: No pleural effusion or pneumothorax. BONE:Within normal limits for the patient's age. OTHER FINDINGS:Normal. IMPRESSION: Linear bilateral basilar infiltrates are seen. This may represent atelectasis. Pneumonia cannot be entirely excluded. DATA REPOSITORY: RADIATION DOSE DELIVERED:
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
[2020-08-26] MEDS: MORPHine 2 MG/ML SYR IVP ×2 (14:50→18:53)
[2020-08-26] MEDS: Ketorolac 30 MG/ML VIAL IVP ×2 (14:50→19:42)
[2020-08-26 15:25] VITALS: BP 146/96; PULSE 69; RESP 19; TEMP 37.1; O2SAT 97
[2020-08-26] MEDS: PIPERACILLIN/TAZO 4.5 GM in Normal Saline 100 ML IVPB (16:41)
[2020-08-26] MEDS: LORazepam 1 MG TAB PO ×2 (16:41→21:23)
[2020-08-26 19:28] VITALS: BP 136/83; PULSE 58; RESP 18; TEMP 37.2; O2SAT 99
[2020-08-26 23:18] VITALS: BP 131/79; PULSE 58; RESP 17; TEMP 36.3; O2SAT 99
[2020-08-27] MEDS: PIPERACILLIN/TAZO 4.5 GM in Normal Saline 100 ML IVPB ×2 (00:36→07:41)
[2020-08-27] MEDS: Normal Saline Flush 10 ML SYR IVP ×3 (00:36→07:41)
[2020-08-27] MEDS: Ketorolac 30 MG/ML VIAL IVP ×2 (02:40→07:41)
[2020-08-27 02:52] VITALS: BP 131/80; PULSE 63; RESP 16; TEMP 36.7; O2SAT 97
--- NOTE | 2020-08-27 07:03 | PDOC.ANES ---
Date of service: 08/26/20 Time of Service: 17:15 Anesthesia Note Report Anesthesia Note: Discussed case with Dr. Salinas at 1300 who informed anesthesia service that patient has requested to have epidural infusion stopped and wishes to have catheter removed. Informed Dr. Becker and floor RN that patient needs to wait 12 hours after prophylactic lovenox dose to safely remove catheter. Plan to pull catheter tomorrow AM.
--- NOTE | 2020-08-27 07:06 | PDOC.ANES ---
Date of service: 08/27/20 Time of Service: 06:55 Anesthesia Note Report Anesthesia Note: Patient at bedside resting comfortably. Discussed planned removed of epidural catheter that had been capped since yesterday afternoon. Tape removed from patient's back and catheter removed with tip intact. Adhesive bandage applied to stie. Area clean and dry. Patient tolerated well. Floor RN informed that catheter was removed and that Lovenox cannot be dosed until 1100, 4 hours after catheter removal.
[2020-08-27 07:22] LABS: C-Reactive Protein 5.57 mg/dL (0.0-0.3)
[2020-08-27 07:43] VITALS: BP 133/79; PULSE 64; RESP 17; TEMP 36.7; O2SAT 97
--- NOTE | 2020-08-27 08:37 | DI.RAD_ITS ---
EXAM: 2D digital imaging was performed. CLINICAL HISTORY: ileus. COMPARISON: No exams were available for comparison TECHNIQUE: Supine and uprightSupine and Lateral views of the abdomen was performed. FINDINGS: LUNG BASES: Plate atelectasis in the right lung base. BOWEL GAS PATTERN: There are scattered mild to moderately dilated loops of small bowel with air-fluid levels. The colon is of normal caliber. FREE AIR: None. CALCIFICATIONS: No radiopaque calcifications. OSSEOUS STRUCTURES: Normal for age. OTHER FINDINGS: Skin lela are seen in the midline. Surgical clips are seen in the right lower jesse drant of the abdomen and overlying the left SI joint. IMPRESSION: Mild to moderately dilated loops of small bowel. This may represent an ileus or possible partial sma ll-bowel obstruction. Please correlate clinically. DATA REPOSITORY: RADIATION DOSE DELIVERED:
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
[2020-08-27 11:18] VITALS: BP 145/94; PULSE 71; RESP 17; TEMP 37.1; O2SAT 99
[2020-08-27 11:21] LABS: Abs Immature Grans 0.02 10^3/uL (0.0-0.06); Absolute Basophil Count 0.04 10^3/uL (0.0-0.2); Absolute Eosinophil Count 0.34 10^3/uL (0.0-0.7); Absolute Monocyte Count 0.69 10^3/uL (0.1-0.8); Basophils % 0.5; Eosinophils % 4.6; HCT 39.9 % (40.0-50.0); HGB 13.5 g/dL (13.5-17.5); Immature Grans % 0.3; Lymphocytes % 12.2; MCH 33.4 pg (27.0-33.0); MCHC 33.8 % (32.0-36.0); MCV 98.8 fL (80-95); Monocytes % 9.4; Nucleated RBC 0 %; Platelet Count 212 10^3/uL (130-400); RBC 4.04 10^6/uL (4.36-5.78); RDW 11.4 % (11.8-14.1); RDW-SD 41.6 fL; WBC 7.35 10^3/uL (4.4-10.8)
[2020-08-27 11:24] LABS: Absolute Neutrophil Count 5.37 10^3/uL (1.2-6.7)
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
[2020-08-27] MEDS: oxyCODONE 5 MG TAB PO (12:40)
[2020-08-27] MEDS: Enoxaparin 40 MG/0.4 ML SYR SC (12:41)
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
== END 2020-08-27 13:20 | disposition home or self-care (01) | DRG 331 ==
LOC: ER 06:30 → SUR 07:07 → ICU 10:23 → MS 08-24 13:56
PROVIDERS: Internal Medicine; Surgery; Admitting Provider Surgery; Emergency Provider Student in an Organized Health Care Education/Training Program; PCP Internal Medicine; Visit Provider Surgery
PROC: 0DQM0ZZ Repair Descending Colon, Open Approach (ICD-10-PCS; CPT 49000; principal; 2020-08-23 12:30)
DX: S36.532A Laceration of descending [left] colon, initial encounter; W26.0XXA Contact with knife, initial encounter; F10.129 Alcohol abuse with intoxication, unspecified; Y90.6 Blood alcohol level of 120-199 mg/100 ml; F17.210 Nicotine dependence, cigarettes, uncomplicated; Z11.59 Encounter for screening for other viral diseases; Z91.19 Patient's noncompliance with other medical treatment and regimen; I10 Essential (primary) hypertension
CPT/HCPCS: 44604; 36410; 36415; 80053; 80307; 83690; 85027; 86850; 86900; 86901; 87040; 90471; 90686; 96361; 96365; 96367; 99223; 99232; 99238; 99285; J1650; NC; U0003; 71046; 74019; 74177; 80320; 81003; 81015; 85025; 86140; 93005; 93010; J0131; J0690; J1100; J1885; J2060; J2250; J2270; J2405; J2543; J2704; J3010; J3490

== ENCOUNTER 2022-02-04 10:20 | Emergency (ER) | payer MEDICAID, SELFPAY ==
[2022-02-04 10:22] VITALS: BP 164/95; PULSE 94; RESP 16; TEMP 36.5; O2SAT 98
--- NOTE | 2022-02-04 10:30 | DI.RAD_ITS ---
Exam(s) XR SHOULDER LT COMPLETE 2+V EXAM: XR SHOULDER LT COMPLETE 2+V CLINICAL HISTORY: post/ant pain after rotational injury. TECHNIQUE: 2D digital imaging was performed. COMPARISON: No exams were available for comparison FINDINGS: Five views There is no evidence of fracture or dislocation of the glenohumeral joint. No degenerative changes e vident. AC joint is not distracted. No fracture of the coracoid process. There is an osteophytic d ensity evident off the superior aspect of the lateral clavicle and. However, on 1 of the images this appears well-corticated and therefore most probably related to non acute injury. Correlation with site of tenderness is recommended. Subacromial space is not diminished and there are no soft tissue calcifications within the subacromia l space. No ominous osseous lesions. Bone density is age-appropriate. IMPRESSION: DATA REPOSITORY: RADIATION DOSE DELIVERED:
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
[2022-02-04] MEDS: Acetaminophen 325 MG TAB 650 MG PO (10:40)
[2022-02-04] MEDS: Ibuprofen 600 MG TAB PO (10:41)
[2022-02-04 12:08] VITALS: BP 159/81; PULSE 82; RESP 16; TEMP 37; O2SAT 98
[2022-02-04 12:42] VITALS: BP 159/81; PULSE 82; RESP 16; TEMP 37; O2SAT 98
== END 2022-02-04 12:52 | disposition home or self-care (01) ==
PROVIDERS: Emergency Provider Physician Assistant; PCP Internal Medicine
DX: M25.512 Pain in left shoulder (principal); X50.1XXA Overexertion from prolonged static or awkward postures, initial encounter
CPT/HCPCS: 99283; 73030

== ENCOUNTER → 2022-08-23 00:26 | Outpatient (CLI) | payer MEDICAID, SELFPAY ==
--- NOTE | 2022-08-23 07:30 | DI.US_ITS ---
Exam(s) US SCROTUM EXAM: US SCROTUM CLINICAL HISTORY: right testicle pain intermittently for years,n50.811 TECHNIQUE: Ultrasound of the testes performed using grayscale, color, and Doppler imaging. COMPARISON: US US OR ANESTHESIA from 04/26/2020 FINDINGS: RIGHT HEMISCROTUM: The right testicle exhibits normal size and echo architecture with no evidence of intratesticular mas s. Vascular flow was demonstrated within the right testicle, including arterial waveforms. There is an epididymal head cyst measuring 4 x 4 millimeters. There is no ipsilateral hydrocele nor varicocele. LEFT HEMISCROTUM: The left testicle exhibits normal size and echo architecture with no evidence of intratesticular mass . Vascular flow is demonstrated within the left testicle, including arterial waveforms. There is an epididymal head cyst measuring 3 x 3 millimeters. There is no ipsilateral hydrocele or varicocele. IMPRESSION: 1. No evidence of testicular mass nor testicular torsion. 2. Bilateral small epididymal head cysts measuring 3-4 millimeters. 3. No hydroceles nor obvious varicoceles. DATA REPOSITORY:
== END ==
PROVIDERS: PCP Internal Medicine; Visit Provider Nurse Practitioner Gerontology
DX: N50.3 Cyst of epididymis
CPT/HCPCS: 76870

== ENCOUNTER 2023-07-02 21:31 | Outpatient (REF) | payer MEDICAID, SELFPAY ==
[2023-07-02 21:50] LABS: Abs Immature Grans 0.01 10^3/uL (0.0-0.06); Absolute Basophil Count 0.07 10^3/uL (0.0-0.2); Absolute Eosinophil Count 0.13 10^3/uL (0.0-0.7); Absolute Lymphocyte Count 2.14 10^3/uL (1.2-3.4); Absolute Monocyte Count 0.57 10^3/uL (0.1-0.8); Absolute Neutrophil Count 3.57 10^3/uL (1.2-6.7); Basophils % 1.1; HCT 48.3 % (40.0-50.0); HGB 16.7 g/dL (13.5-17.5); Immature Grans % 0.2; MCH 33.3 pg (27.0-33.0); MCHC 34.6 % (32.0-36.0); MCV 96 fL (80-95); MPV 9.7 fL (8.0-11.0); Monocytes % 8.8; Neutrophils % 54.9; Platelet Count 197 10^3/uL (130-400); RBC 5.01 10^6/uL (4.36-5.78); RDW-SD 46.5 fL; WBC 6.49 10^3/uL (4.4-10.8)
[2023-07-02 22:04] LABS: ALT 90 U/L (16-63); AST 57 U/L (15-37); Albumin 4.2 g/dL (3.4-5.0); Alkaline Phosphatase 78 U/L (46-116); Anion Gap 10.1 mmol/L (3-11); BUN 3 mg/dL (7-18); Bilirubin, Total 0.5 mg/dL (0.2-1.0); CO2 27.9 mmol/L (21.0-32.0); CREATININE 0.7 mg/dL (0.70-1.30); Calcium 9.3 mg/dL (8.5-10.1); Chloride 105 mmol/L (98-107); Glucose 88 mg/dL (74-106); Lipase 52 U/L (16-77); Potassium 4.3 mmol/L (3.5-5.1); Sodium 143 mmol/L (136-145); Total Protein 7.4 g/dL (6.4-8.2)
== END 2023-07-02 21:32 | disposition home or self-care (01) ==
LOC: LBN 21:31
PROVIDERS: PCP Internal Medicine; Visit Provider Physician Assistant Medical
DX: M54.89 Other dorsalgia (principal)
CPT/HCPCS: 80053; 83690; 85025

== ENCOUNTER 2023-07-19 08:54 | Emergency (ER) | payer MEDICAID, SELFPAY ==
[2023-07-19 09:22] VITALS: PULSE 75; RESP 16; TEMP 36.8; O2SAT 100
--- NOTE | 2023-07-19 09:30 | DI.RAD_ITS ---
Exam(s) XR TOE LT GREAT EXAM: XR TOE LT GREAT CLINICAL HISTORY: Injury. TECHNIQUE: 2D digital imaging was performed. Three images were obtained. COMPARISON: No exams were available for comparison FINDINGS: BONES: No acute fracture is present. No bony destructive lesion is seen. JOINTS: No dislocation present. SOFT TISSUE: Normal. IMPRESSION: No evidence of acute fracture, dislocation, or subluxation. DATA REPOSITORY: RADIATION DOSE DELIVERED:
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
[2023-07-19] MEDS: Cephalexin 500 MG CAP PO (09:43)
[2023-07-19] MEDS: Bacitracin 1 PACKET TP (10:04)
--- NOTE | 2023-07-19 10:13 | DI.VRAD_ITS ---
PROCEDURE INFORMATION: Exam: XR Left Toe(s) Exam date and time: 07/19/2023 9:52 AM Age: 37 years old Clinical indication: Injury or trauma; Other: Stoved great toe; Sprain or strain; Toes; Left great toe TECHNIQUE: Imaging protocol: Radiologic exam of the left toes. Views: Minimum 2 views. COMPARISON: CR XR TIB/FIB LT 07/11/2020 9:08 AM FINDINGS: Bones/joints: Normal. Soft tissues: Normal. IMPRESSION: No acute findings. Dictated and Authenticated by: Megan Dela Cruz MD. Ordering:KATHERINE Campoverde MD
[2023-07-19 11:10] VITALS: BP 156/95; PULSE 76; RESP 18; O2SAT 100
== END 2023-07-19 11:11 | disposition home or self-care (01) ==
PROVIDERS: Emergency Provider Registered Nurse Emergency; PCP Internal Medicine
DX: L60.0 Ingrowing nail (principal); L03.032 Cellulitis of left toe; F17.210 Nicotine dependence, cigarettes, uncomplicated
CPT/HCPCS: 99283; 73660

== ENCOUNTER 2023-10-15 21:50 | Emergency (ER) | payer MEDICAID, SELFPAY ==
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
== END 2023-10-15 22:54 ==
PROVIDERS: Emergency Provider Emergency Medicine Emergency Medical Services; PCP Internal Medicine
DX: M25.512 Pain in left shoulder (principal); S43.402A Unspecified sprain of left shoulder joint, initial encounter; X58.XXXA Exposure to other specified factors, initial encounter; S43.401A Unspecified sprain of right shoulder joint, initial encounter; M25.511 Pain in right shoulder; F10.129 Alcohol abuse with intoxication, unspecified
CPT/HCPCS: 99282; 99283

== ENCOUNTER 2024-03-16 06:18 | Emergency (ER) | payer MEDICAID, SELFPAY ==
[2024-03-16 06:21] VITALS: BP 159/100; PULSE 69; RESP 18; TEMP 36.3; O2SAT 100
[2024-03-16] MEDS: Acetaminophen 500 MG TAB 1000 MG PO (07:04)
[2024-03-16] MEDS: Clindamycin 300 MG CAP PO (07:04)
[2024-03-16] MEDS: Ketorolac 15 MG/ML VIAL IVP (07:07)
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
[2024-03-16] MEDS: Omnipaque 350 MG/ML 50 ML BTL IJ ×2 (07:49→07:52)
[2024-03-16] MEDS: Normal Saline Flush 10 ML SYR IJ (07:55)
[2024-03-16] MEDS: Normal Saline - Diluent 50 ML VIAL IJ (07:56)
--- NOTE | 2024-03-16 07:56 | DI.CT_ITS ---
Exam(s) CT FACIAL W EXAM: CT FACIAL W CLINICAL HISTORY: dental infection, periorbital swelling. TECHNIQUE: Imaging Protocol: Axial computed tomography images with coronal and sagittal reformatted images were created and reviewed CONTRAST MATERIAL: Intravenous: Omnipaque 350 Contrast volume:100 ml contrast route:IV - COMPARISON: No exams were available for comparison FINDINGS: Facial Bones: No fracture is noted in the facial bones. Sinuses and Mastoids: Mucous retention within both maxillary sinus, right greater than left. Mild m ucosal thickening in the ethmoids. Globes, extraocular muscles, optic nerves and retrobulbar fat: Normal. Upper aerodigestive tract: Normal. Mandible and bilateral temporomandibular joints: Normal. Soft tissues: No evidence of abscess. IMPRESSION: No evidence of fracture or bony destruction. No visible abscess.. RADIATION DOSE DELIVERED: 521.2mGy.cm Total DLP DATA REPOSITORY: All CT scans at this facility are submitted to the National Radiology Data Registry (NRDR) Dose Index Registry (DIR) with the [employer] (A[employer]). RADIATION OPTIMIZATION: All CT scans at this facility use at least one of these dose optimization te chniques: automated exposure control; mA and/or kV adjustment per patient size (includes targeted exa ms where dose is matched to clinical indication); or iterative reconstruction.
--- NOTE | 2024-03-16 08:25 | DI.VRAD_ITS ---
PROCEDURE INFORMATION: Exam: CT Maxillofacial With Contrast Exam date and time: 03/16/2024 7:48 AM Age: 38 years old Clinical indication: Face pain; Patient HX: RT sided face/eye swelling 6 days TECHNIQUE: Imaging protocol: Computed tomography of the face with contrast. Radiation optimization: All CT scans at this facility use at least one of these dose optimization techniques: automated exposure control; mA and/or kV adjustment per patient size (includes targeted exams where dose is matched to clinical indication); or iterative reconstruction. Contrast material: OMNI 350; Contrast volume: 100 ml; Contrast route: INTRAVENOUS (IV); COMPARISON: No relevant prior studies available. FINDINGS: Very subtle right premalar and preseptal periorbital soft tissue swelling are noted. No postseptal intraorbital abnormality detected. No obvious orbital or facial abscess detected. Moderate mucosal thickening is present anteriorly within the right maxillary sinus but there are no fluid levels. Parapharyngeal fat planes are preserved. No obvious acute abnormality of either parotid gland or of either submandibular gland. Incidental note of a prominent left nasal septal spur. Major vascular structures are patent. IMPRESSION: Mild nonspecific soft tissue swelling as noted above, possibly representing cellulitis. No abscess detected. Dictated and Authenticated by: Moise Yanez MD. Ordering:JIMMY Wood MD
--- NOTE | 2024-03-16 08:31 | ED.PROG_ITS ---
Date of service: 03/16/24 Time of Service: 08:39 Medical Decision Making Patient was signed out pending CT scan results. CT scan results demonstrate no evidence of abscess. Patient shows no signs of Ludewig's angina. No signs of airway compromise or other concerning abnormalities. No range of motion restric tion for the eye. Patient otherwise feels well. Will recommend continued clindamycin use, discussed red flags for which to return. I have extensively reviewed the treatment plan and discharge instructions with the patient. I have addressed all patient concerns at this time. The patient was made aware of what symptoms to monitor for that would warrant a return to the emergency department. Discussed the plan with the patient, they demonstrate verbal understanding and agreement with our assessment and plan at this time. The documentation in this chart was dictated using [email or web address] dictation software. Please excuse any dictation errors. FINDINGS: Facial Bones: No fracture is noted in the facial bones. Sinuses and Mastoids: Mucous retention within both maxillary sinus, right greater than left. Mild mucosal thickening in the ethmoids. Globes, extraocular muscles, optic nerves and retrobulbar fat: Normal. Upper aerodigestive tract: Normal. Mandible and bilateral temporomandibular joints: Normal. Soft tissues: No evidence of abscess. IMPRESSION: No evidence of fracture or bony destruction. No visible abscess.. Quality:SDOH Health Related Social Needs: No Data to Display Sign Out Sign Out Data: Sign Out Comment: Dental infection saw dentist yesterday on clinda, worsening facial swelling now extending to right eye/inferior aspect of orbit. Pending CT Last updated by Nina Perez MD at 03/16/24 07:56 Discharge Plan Disposition Patient Disposition: Home Condition: Good Discharge Details Clinical Impression: Pain, dental Primary Care Provider: Abdoul Briceño ED Provider: Lucas Alvarez Home Meds and New Rx's Prescriptions: No Action No Known Home Meds Discharge Instructions Instructions: Toothache (ED) Additional Instructions: At this time the CT scan shows no evidence of abscess. Please continue to take Tylenol, Motrin and the antibiotic. If you notice any worsening of your symptoms, or any new symptoms such as vomiting, diarrhea, fever, chills, shortness of breath, chest pain, numbness, weakness, or fainting , please return immediately to the emergency department for reevaluation. Please follow up with your primary care provider as soon as possible for reassessment and reevaluation. As always, it was a pleasure participating in your medical care today. Referrals: Abdoul Briceño MD [Primary Care Provider] -
== END 2024-03-16 08:50 | disposition home or self-care (01) ==
PROVIDERS: Emergency Provider Student in an Organized Health Care Education/Training Program; PCP Internal Medicine
DX: K08.89 Other specified disorders of teeth and supporting structures (principal); F17.210 Nicotine dependence, cigarettes, uncomplicated
CPT/HCPCS: 00123; 96374; 99285; 70487; 99284; J1885; Q9967

== ENCOUNTER 2024-06-23 18:06 | Outpatient (REF) | payer MEDICAID, SELFPAY ==
--- OUTSIDE RECORDS SUMMARY | 2024-06-23 18:09 | XMS_ITS | Continuity of Care Document ---
Author Organization [facility] Address [address] [place] [address] Encounter LTTL_[facility] FIN NBR [id number] Date(s): 06/14/23 - 06/14/23 [facility] [address] [place], [place] [address] Encounter Diagnosis ETOH abuse(Discharge Diagnosis) - 06/14/23 Discharge Disposition: Home or Self Care Attending Physician: Aaron Keller DO Admitting Physician: Aaron Keller DO Allergies, Adverse Reactions, Alerts No Known Medication Allergies Functional Status 06/14/23 Family Member Travel History No recent t ravel Recent Travel History No recent travel Other exposure to Infectious Disease Non e Mental Status 06/14/23 Eye Opening Response Verenice Spontaneous ly Best Verbal Response Verenice Oriented Best Motor Response Blevins Obeys comman ds Verenice Coma Score 15 Results Laboratory List Name Date Alcohol Lvl 06/14/23 CBC w/ Diff 06/14/23 Comprehensive Metabolic Panel (CMP) 06/14 Lipase Level 06/14/23 Automated Diff 06/14/23 Chlamydia trachomatis and Neisseria gono rrhoeae (GeneXpert) 06/14/23 Drug Screen Urine 06/14/23 Urinalysis with Micro if Indicated and C ulture if Indicated 06/14/23 Most recent to oldest [Reference Range]: 1 WBC [4.8-10.8 K/mcL] 7.0 K/mcL (06/14/23 10:50 AM) RBC [4.20-6.10 Million/mcL] 5.03 Million /mcL (06/14/23 10:50 AM) Neutro Auto [42.2-75.2 %] 54.8 % (06/14/23 10:50 AM) Lymph Auto [20.5-51.1 %] 33.0 % (06/14/23 10:50 AM) [place] Auto [1.7-9.3 %] 11.1 % *HI* (06/14/23 10:50 AM) Basophil Auto [0.0-0.8 %] 0.7 % (06/14/23 10:50 AM) BUN [8-26 mg/dL] <5 mg/dL *LOW* (06/14/23 10:50 AM) U Amph Scrn [Negative] Negative (06/14/23 10:15 AM) UA Color LIGHT YELL *NA* (06/14/23 10:15 AM) Glucose Level [74-106 mg/dL] 105 mg/dL (06/14/23 10:50 AM) Potassium Level [3.5-5.1 mmol/L] 3.7 mmo l/L (06/14/23 10:50 AM) Baso Absolute [0.0-0.2 K/mcL] 0.0 K/mcL (06/14/23 10:50 AM) U Benzodia Scrn [Negative] Positive *ABN* (06/14/23 10:15 AM) MCV [80.0-94.0 fL] 94.4 fL *HI* (06/14/23 10:50 AM) UA Urobilinogen [0.2] 0.2 (06/14/23 10:15 AM) UA Bili [Negative] Negative (06/14/23 10:15 AM) UA Ketones [Negative] Negative (06/14/23 10:15 AM) AST [15-41 IntlUnit/L] 39 IntlUnit/L (06/14/23 10:50 AM) ALT [17-63 IntlUnit/L] 35 IntlUnit/L (06/14/23 10:50 AM) MCHC [32.0-36.0 g/dL] 35.4 g/dL (06/14/23 10:50 AM) Osmolality [275-295 mOsm/kg] <271 mOsm/k g *LOW* (06/14/23 10:50 AM) Sodium Level [134-143 mmol/L] 137 mmol/L (06/14/23 10:50 AM) UA Leuk Est [Negative] Negative (06/14/23 10:15 AM) Lymph Absolute [1.2-3.4 K/mcL] 2.3 K/mcL (06/14/23 10:50 AM) UA Nitrite [Negative] Negative (06/14/23 10:15 AM) UA Glucose [Negative] Negative (06/14/23 10:15 AM) Hct [42.0-52.0 %] 47.5 % (06/14/23 10:50 AM) Lipase Level [18-51 unit/L] 35 unit/L 1 (06/14/23 10:50 AM) U Cocaine Scrn [Negative] Negative (06/14/23 10:15 AM) Calcium Level [8.9-10.3 mg/dL] 8.9 mg/dL (06/14/23 10:50 AM) [place] Absolute [0.1-0.6 K/mcL] 0.8 K/mcL *HI* (06/14/23 10:50 AM) Albumin Level [3.5-5.0 g/dL] 4.4 g/dL (06/14/23 10:50 AM) Protein Total [6.5-8.1 g/dL] 7.4 g/dL (06/14/23 10:50 AM) UA Protein [Negative] Negative (06/14/23 10:15 AM) MCH [27.0-31.0 pg] 33.4 pg *HI* (06/14/23 10:50 AM) Neutro Absolute [1.4-6.5 K/mcL] 3.9 K/mc L (06/14/23 10:50 AM) Bilirubin Total [0.2-1.2 mg/dL] 0.5 mg/d L (06/14/23 10:50 AM) Hgb [14.0-18.0 g/dL] 16.8 g/dL (06/14/23 10:50 AM) Alk Phos [38-130 IntlUnit/L] 62 IntlUnit /L (06/14/23 10:50 AM) UA Blood [Negative] Negative (06/14/23 10:15 AM) MPV [7.4-10.4 fL] 8.6 fL (06/14/23 10:50 AM) Ethanol Level [0.00-0.08 g/dL] 0.32 g/dL *HI* (06/14/23 10:50 AM) UA Spec Grav [1.001-1.030] <=1.005 *NA* (06/14/23 10:15 AM) Platelets [130-400 K/mcL] 220 K/mcL (06/14/23 10:50 AM) CO2 [22-32 mmol/L] 23 mmol/L (06/14/23 10:50 AM) Eos Absolute [0.0-0.2 K/mcL] 0.0 K/mcL (06/14/23 10:50 AM) U Aleyda Scrn [Negative] Negative (06/14/23 10:15 AM) UA pH [5.00-9.00] 6.50 (06/14/23 10:15 AM) U Opiate Scrn [Negative] Negative (06/14/23 10:15 AM) UA Appear [Clear] Clear (06/14/23 10:15 AM) Chloride Level [98-111 mmol/L] 100 mmol/ L (06/14/23 10:50 AM) U Oxy Scrn [Negative] Negative (06/14/23 10:15 AM) U PCP Scrn [Negative] Negative (06/14/23 10:15 AM) RDW-CV [11.5-14.5 %] 12.7 % (06/14/23 10:50 AM) A/G Ratio 1.5 *NA* (06/14/23 10:50 AM) BUN/Creat Ratio [8.0-20.0] <7.8 *LOW* (06/14/23 10:50 AM) Globulin 3.0 *NA* (06/14/23 10:50 AM) U THC Scr [Negative] Negative (06/14/23 10:15 AM) U PPX Scr [Negative] Negative (06/14/23 10:15 AM) U Methadone Scr [Negative] Negative (06/14/23 10:15 AM) Imm Gran Absolute 0.01 *NA* (06/14/23 10:50 AM) Imm Gran Auto [0.0-0.5 %] 0.1 % (06/14/23 10:50 AM) Slide Review Not Indicated (06/14/23 10:50 AM) Urine Srce Clean Catch (06/14/23 10:15 AM) U Buprenorph Scr [Negative] Negative (06/14/23 10:15 AM) U mAMP Scr [Negative] Negative (06/14/23 10:15 AM) U TCA Scr [Negative] Negative (06/14/23 10:15 AM) Chlamydia trachomatis DNA -GeneXpert [No t Detected] Not Detected (06/14/23 10:15 AM) Neisseria gonorrhoeae DNA -GeneXpert [No t Detected] Not Detected (06/14/23 10:15 AM) Creatinine Level [0.61-1.24 mg/dL] 0.64 mg/dL (06/14/23 10:50 AM) Anion Gap [3.0-12.0] 14.0 *HI* (06/14/23 10:50 AM) Eos, Auto [0.00-3.00 %] 0.30 % (06/14/23 10:50 AM) Instr Ethanol Lvl [<=5 mg/dL] 318 mg/dL *HI* (06/14/23 10:50 AM) eGFR CKD-EPI [>=60 mL/min/1.73 m2] 124 m L/min/1.73 m2 (06/14/23 10:50 AM) 1Interpretive Data: T-dnnhyx-h-benzoquinone imine (meabolite of Acetaminophen) will generate erroneously low lipase results in samples for patients that have taken toxic doses of acetaminophen. Vital Signs Most recent to oldest [Reference Range]: 1 Temperature Temporal Artery [36-38 Deg C ] 36.2 Deg C (06/14/23 10:10 AM) Peripheral Pulse Rate [60-100 bpm] 74 bp m (06/14/23 10:10 AM) Respiratory Rate [12-24 br/min] 18 br/mi n (06/14/23 10:10 AM) Blood Pressure [90-140/60-90 mmHg] 154/9 8mmHg *HI* (06/14/23 10:10 AM) Weight Dosing 108.00 kg (06/14/23 10:40 AM) Weight Estimated 108.00 kg (06/14/23 10:10 AM) Height/Length Dosing 187.000 cm (06/14/23 10:40 AM) Height/Length Estimated 187.000 cm (06/14/23 10:10 AM) Social History Social History Type Response Tobacco Current everyday tob acco user Tobacco Use:. Sex Hospital Discharge Instructions Patient Education 06/14/2023 11:11:44 Alcohol Abuse and Dependence Information, Adult Alcohol Abuse and Dependence Information, Adult Alcohol is a widely available drug. People drink alcohol in different amounts. People who drink alcohol very often and in large amounts often have problems during and after drinking. They may developwhat is called an alcohol use disorder. There are two main types of alcohol use disorders: ??? Alcohol abuse. This is when you use alcohol too much or too often. You may use alcohol to make yourself feel happy or to reduce stress. You may have a hard time setting a limit on the amount you drink. ??? Alcohol dependence. This is when you use alcohol consistently for a period of time, and your body changes as a result. This can make it hard to stop drinking because you may start to feel sick orfeel different when you do not use alcohol. These symptoms are known as withdrawal. How can alcohol abuse and dependence affect me? Alcohol abuse and dependence can have a negative effect on your life. Drinking too much can lead toaddiction. You may feel like you need alcohol to function normally. You may drink alcohol before work in the morning, during the day, or as soon as you get home from work in the evening. These actions can result in: ??? Poor work performance. ??? Job loss. ??? Financial problems. ??? Car crashes or criminal charges from driving after drinking alcohol. ??? Problems in your relationships with friends and family. ??? Losing the trust and respect of coworkers, friends, and family. Drinking heavily over a long period of time can permanently damage your body and brain, and can cause lifelong health issues, such as: ??? Damage to your liver or pancreas. ??? Heart problems, high blood pressure, or stroke. ??? Certain cancers. ??? Decreased ability to fight infections. ??? Brain or nerve damage. ??? Depression. ??? Early (premature) . If you are careless or you crave alcohol, it is easy to drink more than your body can handle (overdose). Alcohol overdose is a serious situation that requires hospitalization. It may lead to permanent injuries or . What can increase my risk? Having a family history of alcohol abuse. ??? Having depression or other mental health conditions. ??? Beginning to drink at an early age. ??? Binge drinking often. ??? Experiencing trauma, stress, and an unstable home life during childhood. ??? Spending time with people who drink often. What actions can I take to prevent or manage alcohol abuse and dependence? Do not drink alcohol if: ??? Your health care provider tells you not to drink. ??? You are , may be , or are planning to become . ??? If you drink alcohol: ??? Limit how much you use to: ??? 0???1 drink a day for women. ??? 0???2 drinks a day for men. ??? Be aware of how much alcohol is in your drink. In the [place] one drink equals one 12 oz bottle of beer (355 mL), one 5 oz glass of wine (148 mL), or one 1?? oz glass of hard liquor (44 mL). ??? Stop drinking if you have been drinking too much. This can be very hard to do if you are used to abusing alcohol. If you begin to have withdrawal symptoms, talk with your health care provider or a person that you trust. These symptoms may include anxiety, shaky hands, headache, nausea, sweating, or not being able to sleep. ??? Choose to drink nonalcoholic beverages in social gatherings and places where there may be alcohol. Activity ??? Spend more time on activities that you enjoy that do not involve alcohol, like hobbies or exercise. ??? Find healthy ways to cope with stress, such as exercise, meditation, or spending time with people you care about. General information ??? Talk to your family, coworkers, and friends about supporting you in your efforts to stop drinking. If they drink, ask them not to drink around you. Spend more time with people who do not drink alcohol. ??? If you think that you have an alcohol dependency problem: ??? Tell friends or family about your concerns. ??? Talk with your health care provider or another health professional about where to get help. ??? Work with a therapist and a chemical dependency counselor. ??? Consider joining a support group for people who struggle with alcohol abuse and dependence. Where to find support ??? Your health care provider. ??? SMART Recovery: www.[facility].org Therapy and support groups ??? Local treatment centers or chemical dependency counselors. ??? Local AA groups in your community: www.aa.org Where to find more information ??? Centers for Disease Control and Prevention: www.cdc.gov ??? National [place] on Alcohol Abuse and Alcoholism: www.niaaa.nih.gov ??? Alcoholics Anonymous (AA): www.aa.org Contact a health care provider if: ??? You drank more or for longer than you intended on more than one occasion. ??? You tried to stop drinking or to cut back on how much you drink, but you were not able to. ??? You often drink to the point of vomiting or passing out. ??? You want to drink so badly that you cannot think about anything else. ??? You have problems in your life due to drinking, but you continue to drink. ??? You keep drinking even though you feel anxious, depressed, or have experienced memory loss. ??? You have stopped doing the things you used to enjoy in order to drink. ??? You have to drink more than you used to in order to get the effect you want. ??? You experience anxiety, sweating, nausea, shakiness, and trouble sleeping when you try to stop drinking. Get help right away if: ??? You have thoughts about hurting yourself or others. ??? You have serious withdrawal symptoms, including: ??? Confusion. ??? Racing heart. ??? High blood pressure. ??? Fever. If you ever feel like you may hurt yourself or others, or have thoughts about taking your own life,get help right away. You can go to your nearest emergency department or call: ??? Your local emergency services (911 in the [place] ??? A suicide crisis helpline, such as the National Suicide Prevention Lifeline at or 295 in the [place] This is open 24 hours a day. Summary ??? Alcohol abuse and dependence can have a negative effect on your life. Drinking too much or too often can lead to addiction. ??? If you drink alcohol, limit how much you use. ??? If you are having trouble keeping your drinking under control, find ways to change your behavior. Hobbies, calming activities, exercise, or support groups can help. ??? If you feel you need help with changing your drinking habits, talk with your health care provider, a good friend, or a therapist, or go to an AA group. This information is not intended to replace advice given to you by your health care provider. Make sure you discuss any questions you have with your health care provider. Document Revised: 09/27/2022 Document Reviewed: 01/11/2020 Elsevier Patient Education ?? 2022 [employer]. Physician Emergency department Note * ARNOLD Gill: PERFORM Event Display: ED Note Physician Authored Date: [id number] KARON PADILLA :1985 Age:37 years Sex:Male Visit Date:06/14/2023 Basic Information Time Seen: ARNOLD Gill / 06/14/2023 10:12 Chief Complaint Pt presents to ED c/o back abhishek nx 1 day, bilateral lower. Pt also complains of increasesed anxiey with vague SI since fingings out his was cheating on him 05/22/2023. Has been drinking ETOH a lot daily since event, last drink 10 min ago History Of Present Illness: Is a 37-year-old male here for??mental distress??after he found out his cheated on him 3 days ago.?? Says that at that time??he began to experience a low back pain and had??relapse from being sober??for the past 52 days. ??Has began drinking significant amount of alcohol (beer) at that time.??Exact amounts??are not??known. Low back pain remains as an ache. ??It does not radiate. ??There is mild??associated dysuria for the past 3 days.?? Patient is concerned about STDs. ??Afebrile. ??No nausea vomiting or abdominal pains. ?? Patient denies suicidal ideations when I asked however he did??admit them during triage. ??Patient is here with??a support person who also says that he??has discussed suicide in the past 3 days.??Suicidal tendency?? but no current ideations or plan in place ??at time of exam.?? Pt??admits??gunsin the home. Review of Systems: See HPI Physical Exam Vitals & Measurements T:??36.2?C ??(Temporal Artery)?? HR:??74??(Peripheral)?? RR:??18?? BP:??154/98?? SpO2:??99%?? HT:??187.000??cm?? WT:??108.00??kg??(Estimated)?? Pain Score:??7?? O2 Therapy:??Room air?? General: Pt appears in emotional distress, crying at times and is angry at times through our discussion. HEENT: normocephalic, neck supple, no JVD, adenopathy present. Pulmonary: Regular rate and effort of breathing. ??Lungs clear to auscultation Cardiac: Regular rate and rhythm without murmur gallops or rubs. Abdomen: Normal active bowel sounds. ??Soft, nontender.?? no masses palpated.?? No CVA tenderness MSK: grossly normal. ??Full range of motion??, no TTP over spine or paraspinals. Medical Decision Making: Patient was calm initially when??talking with me about concerns.?? There would be a times of the conversations where he would tear up or appear angry depending on the topica we were discussing. ??Wasnever aggressive with me throughout the conversation. Discussed with patient that ideally??he would stay here??to withdrawal and speak to mental health services, which would be done once sober.??Discussed this with both the patient and his brother??explained in depth why I thought this was the best plan. Patient was very adamant that he did not want to stay in the ER to withdrawal. ??Discussed with thepatient and his brother (who was there in the room)??a plan to go home??with his brother??for the morning and then to go to his??parents house once they returned home in approximately 3 hours.?? I also spoke with his mother??on the phone who is??agreeable??to this plan. ??Patient was intoxicated however he was speaking clearly no??tremors, slurred??speech or nystagmuspresent.?? I felt patient was??coherent??and??capable??to make decisions??and discuss options??withadam and his brother. Patient denies any suicidal or homicidal??ideations with myself multiple times throughout the visit. ??His brother said that he had mentioned suicide??a few times in the past??3 days??but patient denies any currents thoughts and states he has never had a plan in place. Does admits to owning guns. Dr. Keller also spoke to the pt and discussed the same discharge plan in which everyone confirmedagreement. ?? Suspect that the low back pain is muscular skeletal in nature.?? No concerns on blood work or UA. ??STI??test pending??discharge but returned negative. ?? Attempted to call pt w/ results but phonewas unreachable. Considered pancreatitis but again abdomen was soft nontender and??no elevated lipase. Procedure No Qualifying Data Assessment/Plan 1.??ETOH abuse??F10.10 Pt plans to withdraw at home??initially??with the supervision of his brother??and his parents. Bothparties are in agreement of this plan. Patient refuses??stay in the ED and refuses??a visit with a mental health provider. Understands thecomplications of withdrawal. Denies suicidal homicidal ideations again at time of discharge. Orders: Discharge Patient, 06/14/23 12:10:00 EDT Patient Education Alcohol Abuse and Dependence Information, Adult Problem List/Past Medical History Ongoing No qualifying data Historical No qualifying data Medication Administration Given Sodium Chloride 0.9%, 1000 mL, Hydration Bolus Allergies No Known Medication Allergies Social History Alcohol Current, Beer Electronic Cigarette/Vaping Electronic Cigarette Use: Never. Substance Use Never Tobacco Current everyday tobacco user Tobacco Use:. Lab Results CBC and Differential?? LATEST RESULTS?? WBC?? 06/14/23 10:50?? 7.0?? RBC?? 06/14/23 10:50?? 5.03?? Hgb?? 06/14/23 10:50?? 16.8?? Hct?? 06/14/23 10:50?? 47.5?? MCV?? 06/14/23 10:50?? 94.4 ??High?? MCH?? 06/14/23 10:50?? 33.4 ??High?? MCHC?? 06/14/23 10:50?? 35.4?? RDW-CV?? 06/14/23 10:50?? 12.7?? Platelets?? 06/14/23 10:50?? 220?? MPV?? 06/14/23 10:50?? 8.6?? Neutro Auto?? 06/14/23 10:50?? 54.8?? Lymph Auto?? 06/14/23 10:50?? 33.0?? [place] Auto?? 06/14/23 10:50?? 11.1 ??High?? Eos, Auto?? 06/14/23 10:50?? 0.30?? Basophil Auto?? 06/14/23 10:50?? 0.7?? Imm Gran Auto?? 06/14/23 10:50?? 0.1?? Neutro Absolute?? 06/14/23 10:50?? 3.9?? Lymph Absolute?? 06/14/23 10:50?? 2.3?? [place] Absolute?? 06/14/23 10:50?? 0.8 ??High?? Eos Absolute?? 06/14/23 10:50?? 0.0?? Baso Absolute?? 06/14/23 10:50?? 0.0?? Imm Gran Absolute?? 06/14/23 10:50?? 0.01?? Slide Review?? 06/14/23 10:50?? Not Indicated? Routine Chemistry?? LATEST RESULTS?? Sodium Level?? 06/14/23 10:50?? 137?? Potassium Level?? 06/14/23 10:50?? 3.7?? Chloride Level?? 06/14/23 10:50?? 100?? CO2?? 06/14/23 10:50?? 23?? Alk Phos?? 06/14/23 10:50?? 62?? AST?? 06/14/23 10:50?? 39?? ALT?? 06/14/23 10:50?? 35?? BUN?? 06/14/23 10:50?? <5 ??Low?? Glucose Level?? 06/14/23 10:50?? 105?? Creatinine Level?? 06/14/23 10:50?? 0.64?? BUN/Creat Ratio?? 06/14/23 10:50?? <7.8 ??Low?? eGFR CKD-EPI?? 06/14/23 10:50?? 124?? Calcium Level?? 06/14/23 10:50?? 8.9?? Protein Total?? 06/14/23 10:50?? 7.4?? Albumin Level?? 06/14/23 10:50?? 4.4?? Globulin?? 06/14/23 10:50?? 3.0?? A/G Ratio?? 06/14/23 10:50?? 1.5?? Bilirubin Total?? 06/14/23 10:50?? 0.5?? Anion Gap?? 06/14/23 10:50?? 14.0 ??High?? Lipase Level?? 06/14/23 10:50?? 35?? Osmolality?? 06/14/23 10:50?? <271 ??Low? Serum Toxicology?? LATEST RESULTS?? Ethanol Level?? 06/14/23 10:50?? 0.32 ??High?? Instr Ethanol Lvl?? 06/14/23 10:50?? 318 ??High? Urine Toxicology?? LATEST RESULTS?? U Amph Scrn?? 06/14/23 10:15?? Negative?? U Aleyda Scrn?? 06/14/23 10:15?? Negative?? U Benzodia Scrn?? 06/14/23 10:15?? Positive Abnormal?? U Buprenorph Scr?? 06/14/23 10:15?? Negative?? U Cocaine Scrn?? 06/14/23 10:15?? Negative?? U TCA Scr?? 06/14/23 10:15?? Negative?? U THC Scr?? 06/14/23 10:15?? Negative?? U mAMP Scr?? 06/14/23 10:15?? Negative?? U Methadone Scr?? 06/14/23 10:15?? Negative?? U Opiate Scrn?? 06/14/23 10:15?? Negative?? U Oxy Scrn?? 06/14/23 10:15?? Negative?? U PCP Scrn?? 06/14/23 10:15?? Negative?? U PPX Scr?? 06/14/23 10:15?? Negative? UA Macroscopic?? LATEST RESULTS?? Urine Srce?? 06/14/23 10:15?? Clean Catch?? UA Color?? 06/14/23 10:15?? LIGHT YELL?? UA Appear?? 06/14/23 10:15?? Clear?? UA Glucose?? 06/14/23 10:15?? Negative?? UA Bili?? 06/14/23 10:15?? Negative?? UA Ketones?? 06/14/23 10:15?? Negative?? UA Spec Grav?? 06/14/23 10:15?? <=1.005?? UA Blood?? 06/14/23 10:15?? Negative?? UA pH?? 06/14/23 10:15?? 6.50?? UA Protein?? 06/14/23 10:15?? Negative?? UA Urobilinogen?? 06/14/23 10:15?? 0.2?? UA Nitrite?? 06/14/23 10:15?? Negative?? UA Leuk Est?? 06/14/23 10:15?? Negative? Infectious Disease?? LATEST RESULTS?? Chlamydia trachomatis DNA -GeneXpert?? 06/14/23 10:15?? Not Detected?? Neisseria gonorrhoeae DNA -GeneXpert?? 06/14/23 10:15?? Not Detected? Electronically Signed on 06/14/23 02:12 PM ARNOLD Gill DO, Jonathan W: PERFORM Event Display: ED Note Physician Authored Date: [id number] KARON PADILLA :1985 Age:37 years Sex:Male Visit Date:06/14/2023 12:00 PM: Was consulted by the ED attending physician trust manager assistant regarding disposition on this patient.?? In summary, this is a 37-year-old male PMH significant for alcohol use disorder and chronic low back pain initially came to the emergency department due to concerns of acute on chronic low back pain and the possibility of STD.?? 3 days ago his left for several days and upon return stated she was seeing someone new.?? He was concerned that he could have a possible STD.?? When he got to the emergency department his brother shared with the previous staff that he was making threats of suicide.?? Clinically he did not display any evidence of intoxication as he did not have any obvious nys tagmus, ataxia or dysarthria.?? His eyes were with mild conjunctival injection bilaterally and whenasked what this is from he states he has been outside in the sun for the past several weeks.?? Numerically he was intoxicated with an alcohol level of 320 mg/dL.?? There was an anion gap acidosis likely secondary to ethanol.?? Positive benzodiazepine from recent attempt at sobriety with a prescription provided him last year that he decided to start.?? Urinalysis did not demonstrate any evidence of dehydration, hematuria or infectious process. ?? I sat down with the patient bedside and had a lengthy discussion with him and his brother.?? I believe the patient despite having a elevated alcohol level displayed no evidence of clinical intoxication as he had no obvious nystagmus, no ataxia, and no dysarthria.?? [id number] testing was normal.?? He was of calm demeanor and expressed himself quite well.?? He states at present time he has no interest at all in harming himself, hurting others or even having thoughts of suicide.?? He says he may have said those things in the past but has no plan to do so.?? He has no access to weapons.?? Two options were discussed with him.?? His parents were contacted who intend on taking care of him at their home.?? They are 3 to-4 hours from home and could not have him arrive until they get there.?? In the interim his brother who is sober has agreed to be responsible for his wellbeing in the interim.?? His brother was concerned that upon coming to his home that the patient would demand the enamorado tohis truck or leave his home which would be out of his control.?? The patient declared he would never do that and intends on not continuing to drink and following the plan of being at his parents house.?? Alternatively, he could stay here in the emergency department until numerical sobriety and havepsychiatric evaluation.?? The patient was quite adamant that he wants to be discharged in the care of his brother and within a several hours from now his parents.?? His STD testing is pending at present time and we discussed specifically all of his blood work findings including his elevated alcohollevel.?? Patient remained calm, cooperative and remained afebrile and hemodynamically stable upon disposition vital signs.?? His brother once again confirmed his agreement with caring for him in the interim until his parents arrived home.?? His parents live approximately 1 mile from his brother's house.?? His brother agreed to immediately call 911 or return to the emergency department with any continued threats of suicide and to call the police with any verbal abuse or violent behavior.?? The patient states we do not have to worry about either of these.?? All questions were answered.?? Both the patient and the brother expressed understanding of disposition and were in agreement with discharge home. Electronically Signed on 06/14/23 12:28 PM Aaron Keller DO Emergency department Discharge instructions * ARNOLD Gill: PERFORM Event Display: ED Discharge Information Authored Date: [id number] KARON PADILLA :1985 Age:37 years Sex:Male Visit Date:06/14/2023 Discharge Instructions We would like to thank you for allowing us to assist you with your healthcare needs. The following includes patient education materials and information regarding your injury/illness. Diagnosis from Today's Visit ETOH abuse Discharge Vitals Temperature??(Temporal Artery) 97.2 ??F (36.2 ??C) Heart Rate??(Peripheral) 74 Respiratory Rate?? 18 Blood Pressure?? 154/98?? Height?? 73.62 in (187.000 cm) Weight??(Estimated) 238.14 lb (108.00 kg) Allergies No Known Medication Allergies What to Do Next Instructions from Your Care Team You must return to the emergency department or call 911 immediately if you are having??any thoughtsof suicide. You must be with a support person for the rest of the day. You were treated today on an emergency basis; it may be buckley to contact your primary care provider to notify them of your visit today. You may have been referred to your regular doctor or a specialist, please follow up as instructed. If your condition worsens or you can't get in to see the doctor, contact the Emergency Department. Education Materials Alcohol Abuse and Dependence Information, Adult Alcohol is a widely available drug. People drink alcohol in different amounts. People who drink alcohol very often and in large amounts often have problems during and after drinking. They may developwhat is called an alcohol use disorder. There are two main types of alcohol use disorders: ? Alcohol abuse. This is when you use alcohol too much or too often. You may use alcohol to make yourself feel happy or to reduce stress. You may have a hard time setting a limit on the amount you drink. ? Alcohol dependence. This is when you use alcohol consistently for a period of time, and your body changes as a result. This can make it hard to stop drinking because you may start to feel sick or feel different when you do not use alcohol. These symptoms are known as withdrawal. How can alcohol abuse and dependence affect me? Alcohol abuse and dependence can have a negative effect on your life. Drinking too much can lead toaddiction. You may feel like you need alcohol to function normally. You may drink alcohol before work in the morning, during the day, or as soon as you get home from work in the evening. These actions can result in: ? Poor work performance. ? Job loss. ? Financial problems. ? Car crashes or criminal charges from driving after drinking alcohol. ? Problems in your relationships with friends and family. ? Losing the trust and respect of coworkers, friends, and family. Drinking heavily over a long period of time can permanently damage your body and brain, and can cause lifelong health issues, such as: ? Damage to your liver or pancreas. ? Heart problems, high blood pressure, or stroke. ? Certain cancers. ? Decreased ability to fight infections. ? Brain or nerve damage. ? Depression. ? Early (premature) . If you are careless or you crave alcohol, it is easy to drink more than your body can handle (overdose). Alcohol overdose is a serious situation that requires hospitalization. It may lead to permanent injuries or . What can increase my risk? Having a family history of alcohol abuse. ? Having depression or other mental health conditions. ? Beginning to drink at an early age. ? Binge drinking often. ? Experiencing trauma, stress, and an unstable home life during childhood. ? Spending time with people who drink often. What actions can I take to prevent or manage alcohol abuse and dependence? Do not drink alcohol if: ? Your health care provider tells you not to drink. ? You are , may be , or are planning to become . ? If you drink alcohol: ? Limit how much you use to: ? 0???1 drink a day for women. ? 0???2 drinks a day for men. ? Be aware of how much alcohol is in your drink. In the [place] one drink equals one 12 oz bottle of beer (355 mL), one 5 oz glass of wine (148 mL), or one 1?? oz glass of hard liquor (44 mL). ? Stop drinking if you have been drinking too much. This can be very hard to do if you are used to abusing alcohol. If you begin to have withdrawal symptoms, talk with your health care provider or a person that you trust. These symptoms may include anxiety, shaky hands, headache, nausea, sweating, ornot being able to sleep. ? Choose to drink nonalcoholic beverages in social gatherings and places where there may be alcohol. Activity ? Spend more time on activities that you enjoy that do not involve alcohol, like hobbies or exercise. ? Find healthy ways to cope with stress, such as exercise, meditation, or spending time with people you care about. General information ? Talk to your family, coworkers, and friends about supporting you in your efforts to stop drinking. If they drink, ask them not to drink around you. Spend more time with people who do not drink alcohol. ? If you think that you have an alcohol dependency problem: ? Tell friends or family about your concerns. ? Talk with your health care provider or another health professional about where to get help. ? Work with a therapist and a chemical dependency counselor. ? Consider joining a support group for people who struggle with alcohol abuse and dependence. Where to find support ? Your health care provider. ? [employer]: www.[employer].org Therapy and support groups ? Local treatment centers or chemical dependency counselors. ? Local AA groups in your community: www.aa.org Where to find more information ? Centers for Disease Control and Prevention: www.cdc.gov ? National [place] on Alcohol Abuse and Alcoholism: www.niaaa.nih.gov ? Alcoholics Anonymous (AA): www.aa.org Contact a health care provider if: ? You drank more or for longer than you intended on more than one occasion. ? You tried to stop drinking or to cut back on how much you drink, but you were not able to. ? You often drink to the point of vomiting or passing out. ? You want to drink so badly that you cannot think about anything else. ? You have problems in your life due to drinking, but you continue to drink. ? You keep drinking even though you feel anxious, depressed, or have experienced memory loss. ? You have stopped doing the things you used to enjoy in order to drink. ? You have to drink more than you used to in order to get the effect you want. ? You experience anxiety, sweating, nausea, shakiness, and trouble sleeping when you try to stop drinking. Get help right away if: ? You have thoughts about hurting yourself or others. ? You have serious withdrawal symptoms, including: ? Confusion. ? Racing heart. ? High blood pressure. ? Fever. If you ever feel like you may hurt yourself or others, or have thoughts about taking your own life,get help right away. You can go to your nearest emergency department or call: ? Your local emergency services (911 in the [place] ? A suicide crisis helpline, such as the National Suicide Prevention Lifeline at or 068 in the [place] This is open 24 hours a day. Summary ? Alcohol abuse and dependence can have a negative effect on your life. Drinking too much or too often can lead to addiction. ? If you drink alcohol, limit how much you use. ? If you are having trouble keeping your drinking under control, find ways to change your behavior. Hobbies, calming activities, exercise, or support groups can help. ? If you feel you need help with changing your drinking habits, talk with your health care provider, a good friend, or a therapist, or go to an AA group. This information is not intended to replace advice given to you by your health care provider. Make sure you discuss any questions you have with your health care provider. Document Revised: 09/27/2022 Document Reviewed: 01/11/2020 [employer] Patient Education ?? 2022 [employer] Tests Performed Medications and Immunizations Administered Given Sodium Chloride 0.9%, 1000 mL, Hydration Bolus Lab Test Name Test Result Date/Time WBC 7.0 K/mcL 06/14/2023 10:50 EDT RBC 5.03 Million/mcL 06/14/2023 10:50 EDT Hgb 16.8 g/dL 06/14/2023 10:50 EDT Hct 47.5 % 06/14/2023 10:50 EDT MCV 94.4 fL 06/14/2023 10:50 EDT MCH 33.4 pg 06/14/2023 10:50 EDT MCHC 35.4 g/dL 06/14/2023 10:50 EDT RDW-CV 12.7 % 06/14/2023 10:50 EDT Platelets 220 K/mcL 06/14/2023 10:50 EDT MPV 8.6 fL 06/14/2023 10:50 EDT Neutro Auto 54.8 % 06/14/2023 10:50 EDT Lymph Auto 33.0 % 06/14/2023 10:50 EDT [place] Auto 11.1 % 06/14/2023 10:50 EDT Eos, Auto 0.30 % 06/14/2023 10:50 EDT Basophil Auto 0.7 % 06/14/2023 10:50 EDT Imm Gran Auto 0.1 % 06/14/2023 10:50 EDT Neutro Absolute 3.9 K/mcL 06/14/2023 10:50 EDT Lymph Absolute 2.3 K/mcL 06/14/2023 10:50 EDT [place] Absolute 0.8 K/mcL 06/14/2023 10:50 EDT Eos Absolute 0.0 K/mcL 06/14/2023 10:50 EDT Baso Absolute 0.0 K/mcL 06/14/2023 10:50 EDT Imm Gran Absolute 0.01 06/14/2023 10:50 EDT Slide Review Not Indicated 06/14/2023 10:50 EDT Sodium Level 137 mmol/L 06/14/2023 10:50 EDT Potassium Level 3.7 mmol/L 06/14/2023 10:50 EDT Chloride Level 100 mmol/L 06/14/2023 10:50 EDT CO2 23 mmol/L 06/14/2023 10:50 EDT Alk Phos 62 IntlUnit/L 06/14/2023 10:50 EDT AST 39 IntlUnit/L 06/14/2023 10:50 EDT ALT 35 IntlUnit/L 06/14/2023 10:50 EDT BUN <5 mg/dL 06/14/2023 10:50 EDT Glucose Level 105 mg/dL 06/14/2023 10:50 EDT Creatinine Level 0.64 mg/dL 06/14/2023 10:50 EDT BUN/Creat Ratio <7.8 06/14/2023 10:50 EDT eGFR CKD-EPI 124 mL/min/1.73 m2 06/14/2023 10:50 EDT Calcium Level 8.9 mg/dL 06/14/2023 10:50 EDT Protein Total 7.4 g/dL 06/14/2023 10:50 EDT Albumin Level 4.4 g/dL 06/14/2023 10:50 EDT Globulin 3.0 06/14/2023 10:50 EDT A/G Ratio 1.5 06/14/2023 10:50 EDT Bilirubin Total 0.5 mg/dL 06/14/2023 10:50 EDT Anion Gap 14.0 06/14/2023 10:50 EDT Lipase Level 35 unit/L 06/14/2023 10:50 EDT Osmolality <271 mOsm/kg 06/14/2023 10:50 EDT Ethanol Level 0.32 g/dL 06/14/2023 10:50 EDT Instr Ethanol Lvl 318 mg/dL 06/14/2023 10:50 EDT U Amph Scrn NEG 06/14/2023 10:15 EDT U Aleyda Scrn NEG 06/14/2023 10:15 EDT U Benzodia Scrn POS 06/14/2023 10:15 EDT U Buprenorph Scr NEG 06/14/2023 10:15 EDT U Cocaine Scrn NEG 06/14/2023 10:15 EDT U TCA Scr NEG 06/14/2023 10:15 EDT U THC Scr NEG 06/14/2023 10:15 EDT U mAMP Scr NEG 06/14/2023 10:15 EDT U Methadone Scr NEG 06/14/2023 10:15 EDT U Opiate Scrn NEG 06/14/2023 10:15 EDT U Oxy Scrn NEG 06/14/2023 10:15 EDT U PCP Scrn NEG 06/14/2023 10:15 EDT U PPX Scr NEG 06/14/2023 10:15 EDT Urine Srce Clean Catch 06/14/2023 10:15 EDT UA Color LIGHT YELL 06/14/2023 10:15 EDT UA Appear CLEAR. 06/14/2023 10:15 EDT UA Glucose NEGATIVE 06/14/2023 10:15 EDT UA Bili NEGATIVE 06/14/2023 10:15 EDT UA Ketones NEGATIVE 06/14/2023 10:15 EDT UA Spec Grav <=1.005 06/14/2023 10:15 EDT UA Blood NEGATIVE 06/14/2023 10:15 EDT UA pH 6.50 06/14/2023 10:15 EDT UA Protein NEGATIVE 06/14/2023 10:15 EDT UA Urobilinogen 0.2 06/14/2023 10:15 EDT UA Nitrite NEGATIVE 06/14/2023 10:15 EDT UA Leuk Est NEGATIVE 06/14/2023 10:15 EDT Patient/Anchorer Signature Patient Name:KARON PADILLA I have received this information and my questions have been answered. Patient/Anchorer Name: Patient/Anchorer Signature: Relationship to Patient: Witness Name/Signature: Date: Electronically Signed on: 06/14/2023 12:14 EDTSigned by: Patient Care team information Care Team Personnel Name: Ambreen Montague Position: Nurse Member Role: ED Nurse Name: ARNOLD Gill Position: Physician Member Role: Physician Address: Address: [address] [place] [address] Care Team Related Persons Name: CAROLYN PADILLA Name: RADHA PADILLA
--- OUTSIDE RECORDS SUMMARY | 2024-06-23 18:09 | XMS_ITS | Continuity of Care Document ---
Author Organization [facility] Address [address] [place] [address] Encounter [facility] FIN NBR [id number] Date(s): 08/28/23 - 08/28/23 [facility] [address], [place] [address] Encounter Diagnosis Alcohol withdrawal(Discharge Diagnosis) - 08/28/23 Alcohol use disorder(Discharge Diagnosis) - 08/28/23 Acute dehydration(Discharge Diagnosis) - 08/28/23 Discharge Disposition: Home or Self Care Attending Physician: Aaron Keller DO Admitting Physician: Aaron Keller DO Allergies, Adverse Reactions, Alerts No Known Medication Allergies Functional Status 08/28/23 Other exposure to Infectious Disease Non e Medications No Known Medications Mental Status 08/28/23 Eye Opening Response Edmond Spontaneous ly Best Verbal Response Edmond Oriented Best Motor Response Edmond Obeys comman ds Edmond Coma Score 15 Problem List No Known Problems Results Laboratory List Name Date Basic Metabolic Panel 08/28/23 Hepatic Function Panel 08/28/23 Lipase Level 08/28/23 Magnesium Level 08/28/23 Automated Diff 08/28/23 Blood Gas Venous 08/28/23 CBC w/ Diff 08/28/23 Drug Screen Urine 08/28/23 PT/ INR 08/28/23 PTT 08/28/23 Urinalysis with Micro if Indicated and C ulture if Indicated 08/28/23 Most recent to oldest [Reference Range]: 1 WBC [4.8-10.8 K/mcL] 10.9 K/mcL *HI* (08/28/23 10:32 AM) RBC [4.20-6.10 Million/mcL] 5.42 Million /mcL (08/28/23 10:32 AM) Neutro Auto [42.2-75.2 %] 74.8 % (08/28/23 10:32 AM) Lymph Auto [20.5-51.1 %] 18.2 % *LOW* (08/28/23 10:32 AM) Emanuel Auto [1.7-9.3 %] 5.7 % (08/28/23 10: AM) Basophil Auto [0.0-0.8 %] 0.7 % (08/28/23 10:32 AM) Prothrombin Time [9.1-10.6 seconds] 9.4 seconds (08/28/23 10: AM) INR [0.9-1.1] 0.9 1 (08/28/23 10:32 AM) BUN [8-26 mg/dL] 8 mg/dL (08/28/23 11: AM) U Amph Scrn [Negative] Negative (08/28/23: AM) UA Color [Yellow] Yellow (08/28/23: AM) Glucose Level [74-106 mg/dL] 109 mg/dL *HI* (08/28/23: AM) Potassium Level [3.5-5.1 mmol/L] 3.9 mmo l/L (08/28/23 11: AM) Baso Absolute [0.0-0.2 K/mcL] 0.1 K/mcL (08/28/23 10:32 AM) U Benzodia Scrn [Negative] Negative (08/28/23 10:32 AM) MCV [80.0-94.0 fL] 93.4 fL (08/28/23 10:32 AM) UA Urobilinogen [0.2] 0.2 (08/28/23 10:32 AM) UA Bili [Negative] Negative (08/28/23 10:32 AM) CO2 Total Venous [22.0-26.0 mmol/L] 31.3 mmol/L *HI* (08/28/23 10:32 AM) UA Ketones [Negative] 15 *ABN* (08/28/23: AM) HCO3 Venous [22.0-29.0 mmol/L] 29.9 mmol /L *HI* (08/28/23 10:32 AM) AST [15-41 IntlUnit/L] 69 IntlUnit/L *HI* (08/28/23 11:22 AM) ALT [17-63 IntlUnit/L] 65 IntlUnit/L *HI* (08/28/23 11: AM) MCHC [32.0-36.0 g/dL] 35.4 g/dL (08/28/23 10:32 AM) Osmolality [275-295 mOsm/kg] 263 mOsm/kg *LOW* (08/28/23 AM) Sodium Level [134-143 mmol/L] 132 mmol/L *LOW* (08/28/23 AM) UA Leuk Est [Negative] Negative (08/28/23 AM) Lymph Absolute [1.2-3.4 K/mcL] 2.0 K/mcL (08/28/23: AM) UA Nitrite [Negative] Negative (08/28/23 AM) UA Glucose [Negative] Negative (08/28/23: AM) Hct [42.0-52.0 %] 50.6 % (08/28/23: AM) Lipase Level [18-51 unit/L] 39 unit/L 2 (08/28/23: AM) U Cocaine Scrn [Negative] Negative (08/28/23 10: AM) Partial Thromboplastin Time [21.3-28.4 s econds] 26.7 seconds (08/28/23: AM) Calcium Level [8.9-10.3 mg/dL] 9.1 mg/dL (08/28/23: AM) Emanuel Absolute [0.1-0.6 K/mcL] 0.6 K/mcL (08/28/23: AM) Albumin Level [3.5-5.0 g/dL] 3.9 g/dL (08/28/23: AM) Protein Total [6.5-8.1 g/dL] 6.5 g/dL (08/28/23 AM) UA Protein [Negative] Trace *ABN* (08/28/23 AM) MCH [27.0-31.0 pg] 33.0 pg *HI* (08/28/23: AM) Magnesium Level [1.8-2.5 mg/dL] 1.9 mg/d L (08/28/23 1122 AM) Neutro Absolute [1.4-6.5 K/mcL] 8.1 K/mc L *HI* (08/28/23 10: AM) Bilirubin Total [0.2-1.2 mg/dL] 1.0 mg/d L (08/28/23 11:22 AM) Hgb [14.0-18.0 g/dL] 17.9 g/dL (08/28/23 10:32 AM) Alk Phos [38-130 IntlUnit/L] 68 IntlUnit /L (08/28/23 11:22 AM) UA Blood [Negative] Negative (08/28/23 10: AM) MPV [7.4-10.4 fL] 9.9 fL (08/28/23: AM) pCO2 Priyank [42.0-53.0 mmHg] 45.0 mmHg (08/28/23 10: AM) UA Spec Grav [1.001-1.030] 1.010 (08/28/23: AM) Bilirubin Direct [0.0-0.5 mg/dL] 0.1 mg/ dL (08/28/23: AM) Platelets [130-400 K/mcL] 174 K/mcL (08/28/23: AM) CO2 [22-32 mmol/L] 26 mmol/L (08/28/23: AM) Eos Absolute [0.0-0.2 K/mcL] 0.0 K/mcL (08/28/23 10: AM) U Aleyda Scrn [Negative] Negative (08/28/23 10:32 AM) UA pH [5.00-9.00] 7.00 (08/28/23 10:32 AM) pH Priyank [7.32-7.43 pH unit(s)] 7.43 pH un it(s) (08/28/23 10:32 AM) U Opiate Scrn [Negative] Negative (08/28/23 10:32 AM) UA Appear [Clear] Clear (08/28/23 10: AM) Chloride Level [98-111 mmol/L] 97 mmol/L *LOW* (08/28/23 11: AM) U Oxy Scrn [Negative] Negative (08/28/23 10:32 AM) U PCP Scrn [Negative] Negative (08/28/23 10:32 AM) RDW-CV [11.5-14.5 %] 11.3 % *LOW* (08/28/23 10:32 AM) A/G Ratio [1.0-2.5 g/dL] 1.5 g/dL (08/28/23 11:22 AM) BUN/Creat Ratio [8.0-20.0] 9.4 (08/28/23 11:22 AM) Globulin [2.3-3.5 g/dL] 2.6 g/dL (08/28/23 11:22 AM) U THC Scr [Negative] Negative (08/28/23 10:32 AM) U PPX Scr [Negative] Negative (08/28/23 10:32 AM) U Methadone Scr [Negative] Negative (08/28/23 10:32 AM) Imm Gran Absolute [0.00-0.02 K/mcL] 0.02 K/mcL (08/28/23 10:32 AM) Imm Gran Auto [0.0-0.5 %] 0.2 % (08/28/23 10:32 AM) Urine Srce Clean Catch (08/28/23 10:32 AM) U Buprenorph Scr [Negative] Negative (08/28/23 10:32 AM) U mAMP Scr [Negative] Negative (08/28/23 10:32 AM) U TCA Scr [Negative] Negative (08/28/23 10:32 AM) Creatinine Level [0.61-1.24 mg/dL] 0.85 mg/dL (08/28/23 11:22 AM) Anion Gap [3.0-12.0] 9.0 (08/28/23 11:22 AM) Eos, Auto [0.00-3.00 %] 0.40 % (08/28/23 10:32 AM) eGFR CKD-EPI [>=60 mL/min/1.73 m2] 113 m L/min/1.73 m2 (08/28/23 11:22 AM) 1Interpretive Data: THERAPEUTIC INR RANGES FOR WARFARIN Uncomplicated venous thromboembolic disease 2-3 Lupus Anticoagulant and recurrent thrombosis 3-3.5 Mechanical prosthetic valve or recurrent thrombosis 2.5-3.5 2Interpretive Data: Z-voiegj-q-benzoquinone imine (meabolite of Acetaminophen) will generate erroneously low lipase results in samples for patients that have taken toxic doses of acetaminophen. Vital Signs Most recent to oldest [Reference Range]: 1 2 3 Temperature Oral [35.8-37.3 Deg C] 37.1 Deg C (08/28/23 10:18 AM) Peripheral Pulse Rate [60-100 bpm] 79 bpm (08/28/23 12:42 PM) 84 bpm (08/28/23 10:43 AM) 92 bpm (08/28/23 10:18 AM) Respiratory Rate [12-24 br/min] 16 br/min (08/28/23 12:42 PM) 18 br/min (08/28/23 10:18 AM) Blood Pressure [90-140/60-90 mmHg] 147/78mmHg *HI* (08/28/23 12:42 PM) 166/90mmHg *HI* (08/28/23 10:18 AM) Mean Arterial Pressure Cuff 98 mmHg (08/28/23 12:42 PM) Weight Dosing 105.00 kg (08/28/23 10:39 AM) Weight Estimated 105.00 kg (08/28/23 10:18 AM) Height/Length Dosing 187.000 cm (08/28/23 10:39 AM) Height/Length Estimated 187.000 cm (08/28/23 10:18 AM) Social History Social History Type Response Tobacco Current everyday tob acco user Tobacco Use:. 1 / 1.5 per day. Sex Hospital Discharge Instructions Patient Education 08/28/2023 11:32:51 Alcohol Withdrawal Syndrome Alcohol Withdrawal Syndrome Alcohol withdrawal syndrome is a group of symptoms that can develop when a person who drinks heavily and regularly stops drinking or drinks less. Alcohol withdrawal syndrome can be mild or severe, and it may even be life-threatening. Alcohol withdrawal syndrome usually affects people who have alcohol use disorder, which may also becalled alcoholism. Alcohol use disorder is when a person is unable to control his or her alcohol use, and drinking too much or too often causes problems at home, at work, or in relationships. What are the causes? Drinking heavily and drinking on a regular basis cause changes in brain chemistry. Over time, the body becomes dependent on alcohol. When alcohol use stops, the chemistry system in the brain becomes unbalanced and causes the symptoms of alcohol withdrawal. What increases the risk? Alcohol withdrawal syndrome is more likely to occur in people who drink more than the recommended limit of alcohol (2 drinks a day for men or 1 drink a day for non- women). It is also more likely to affect heavy drinkers who have been using alcohol for long periods of time. The more a person drinks and the longer he or she drinks, the greater the risk of alcohol withdrawal syndrome. Severe withdrawal is more likely to develop in someone who: ??? Had severe alcohol withdrawal in the past. ??? Had a seizure during a previous episode of alcohol withdrawal. ??? Is elderly. ??? Uses other drugs. ??? Has a long-term (chronic) medical problem, such as heart, lung, or liver disease. ??? Has depression. ??? Does not get enough nutrients from his or her diet (malnutrition). What are the signs or symptoms? Symptoms of this condition can be mild to moderate, or they can be severe. Symptoms may develop a few hours (or up to a day) after a person changes his or her drinking patterns. During the 48 hours after he or she has stopped drinking, the following symptoms may go away or get better: ??? Uncontrollable shaking (tremor). ??? Sweating. ??? Headache. ??? Anxiety. ??? Inability to relax (agitation). ??? Trouble sleeping (insomnia). ??? Irregular heartbeats (palpitations). ??? Alcohol cravings. ??? Seizure. The following symptoms may get worse 24???48 hours after a person has decreased or stopped alcohol use, and they may gradually improve over a period of days or weeks: ??? Nausea and vomiting. ??? Fatigue. ??? Sensitivity to light and sounds. ??? Confusion and inability to think clearly. ??? Loss of appetite. ??? Mood swings, irritability, depression, and anxiety. ??? Insomnia and nightmares. The following symptoms are severe and life-threatening. When these symptoms occur together, they are called delirium tremens (DTs): ??? High blood pressure. ??? Increased heart rate. ??? Trouble breathing. ??? Seizures. These may go away along with other symptoms, or they may persist. ??? Seeing, hearing, feeling, smelling, or tasting things that are not there (hallucinations). If you experience hallucinations, they usually begin 12???24 hours after a change in drinking patterns. Delirium tremens requires immediate hospitalization. How is this diagnosed? This condition may be diagnosed based on: ??? Your symptoms and medical history. ??? Your history of alcohol use. Your health care provider may ask questions about your drinking behavior. It is important to be honest when you answer these questions. ??? A psychological assessment. ??? A physical exam. ??? Blood tests or urine tests to measure blood alcohol level and to rule out other causes of symptoms. ??? MRI or CT scan. This may be done if you seem to have abnormal thinking or behaviors (altered mental status). Diagnosis can be difficult. People going through withdrawal often avoid seeking medical care and are not thinking clearly. Friends and family members play an important role in recognizing symptoms and encouraging loved ones to get treatment. How is this treated? Most people with symptoms of withdrawal can be treated outside of a hospital setting (outpatient treatment), with close monitoring such as daily check-ins with a health care provider and counseling. You may need treatment at a hospital or treatment center (inpatient treatment) if: ??? You have a history of delirium tremens or seizures. ??? You have severe symptoms. ??? You are addicted to other drugs. ??? You cannot swallow medicine. ??? You have a serious medical condition such as heart failure. ??? You experienced withdrawal in the past but then you continued drinking alcohol. ??? You are not likely to commit to an outpatient treatment schedule. Treatment may involve: ??? Monitoring your blood pressure, pulse, and breathing. ??? IV fluids to keep you hydrated. ??? Medicines to reduce withdrawal symptoms and discomfort (benzodiazepines). ??? Medicine to reduce anxiety. ??? Medicine to prevent or control seizures. ??? Multivitamins and B vitamins. ??? Having a health care provider check on you daily. It is important to get treatment for alcohol withdrawal early. Getting treatment early can: ??? Speed up your recovery from withdrawal symptoms. ??? Make you more successful with long-term stoppage of alcohol use (sobriety). If you need help to stop drinking, your health care provider may recommend a long-term treatment plan that includes: ??? Medicines to help treat alcohol use disorder. ??? Substance abuse counseling. ??? Support groups. Follow these instructions at home: ??? Take [id number]-ykpxbyf and prescription medicines (including vitamin supplements) only as told by your health care provider. ??? Do not drink alcohol. ??? Do not drive until your health care provider approves. ??? Have someone you trust stay with you or be available if you need help with your symptoms or with not drinking. ??? Drink enough fluid to keep your urine pale yellow. ??? Consider joining an alcohol support group or treatment program. These can provide emotional support, advice, and guidance. ??? Keep all follow-up visits as told by your health care provider. This is important. Contact a health care provider if: ??? Your symptoms get worse instead of better. ??? You cannot eat or drink without vomiting. ??? You are struggling with not drinking alcohol. ??? You cannot stop drinking alcohol. Get help right away if: ??? You have an irregular heartbeat. ??? You have chest pain. ??? You have trouble breathing. ??? You have a seizure for the first time. ??? You hallucinate. ??? You become very confused. Summary ??? Alcohol withdrawal is a group of symptoms that can develop when a person who drinks heavily andregularly stops drinking or drinks less. ??? Symptoms of this condition can be mild to moderate, or they can be severe. ??? Treatment may include hospitalization, medicine, and counseling. This information is not intended to replace advice given to you by your health care provider. Make sure you discuss any questions you have with your health care provider. Document Revised: 09/27/2022 Document Reviewed: 09/24/2021 [employer] Patient Education ?? 2022 [employer] Follow Up Care 08/28/2023 10:18:54 With:Sabino Saul ([facility]) Address: [address] [place] [phone] When:1 week Comments:Sabino is an excellent resource to reach out??to get??support??for substance abuse disorder.?? He is a community outreach associate??with a guardian recovery network and works primarily at the [facility]??in [place], [place]. ??He will be??a point reference to guide you??in your earlyrecovery??efforts and to start connections with recovery community. Emergency department Discharge instructions * Aaron Keller, DO: PERFORM Event Display: ED Discharge Information Authored Date: [id number] KARON PADILLA :1985 Age:37 years Sex:Male Visit Date:08/28/2023 Discharge Instructions We would like to thank you for allowing us to assist you with your healthcare needs. The following includes patient education materials and information regarding your injury/illness. Diagnosis from Today's Visit Alcohol withdrawal Alcohol use disorder Acute dehydration Discharge Vitals Temperature??(Oral) 98.8 ??F (37.1 ??C) Heart Rate??(Peripheral) 84 Respiratory Rate?? 18 Blood Pressure?? 166/90?? Height?? 73.62 in (187.000 cm) Weight??(Estimated) 231.52 lb (105.00 kg) Allergies No Known Medication Allergies What to Do Next You Need to Schedule the Following Appointments Follow Up with??aSbino Saul ([facility]) When:??Within 1 week Why: Sabino is an excellent resource to reach out??to get??support??for substance abuse disorder.?? He is a community outreach associate??with a guardian recovery network and works primarily at the [facility]??in [place], [place]. ??He will be??a point reference to guide you??in your early recovery??efforts and to start connections with recovery community. Where: [address] [place] [phone] You were treated today on an emergency basis; it may be buckley to contact your primary care provider to notify them of your visit today. You may have been referred to your regular doctor or a specialist, please follow up as instructed. If your condition worsens or you can't get in to see the doctor, contact the Emergency Department. Education Materials Alcohol Withdrawal Syndrome Alcohol withdrawal syndrome is a group of symptoms that can develop when a person who drinks heavily and regularly stops drinking or drinks less. Alcohol withdrawal syndrome can be mild or severe, and it may even be life-threatening. Alcohol withdrawal syndrome usually affects people who have alcohol use disorder, which may also becalled alcoholism. Alcohol use disorder is when a person is unable to control his or her alcohol use, and drinking too much or too often causes problems at home, at work, or in relationships. What are the causes? Drinking heavily and drinking on a regular basis cause changes in brain chemistry. Over time, the body becomes dependent on alcohol. When alcohol use stops, the chemistry system in the brain becomes unbalanced and causes the symptoms of alcohol withdrawal. What increases the risk? Alcohol withdrawal syndrome is more likely to occur in people who drink more than the recommended limit of alcohol (2 drinks a day for men or 1 drink a day for non- women). It is also more likely to affect heavy drinkers who have been using alcohol for long periods of time. The more a person drinks and the longer he or she drinks, the greater the risk of alcohol withdrawal syndrome. Severe withdrawal is more likely to develop in someone who: ? Had severe alcohol withdrawal in the past. ? Had a seizure during a previous episode of alcohol withdrawal. ? Is elderly. ? Uses other drugs. ? Has a long-term (chronic) medical problem, such as heart, lung, or liver disease. ? Has depression. ? Does not get enough nutrients from his or her diet (malnutrition). What are the signs or symptoms? Symptoms of this condition can be mild to moderate, or they can be severe. Symptoms may develop a few hours (or up to a day) after a person changes his or her drinking patterns. During the 48 hours after he or she has stopped drinking, the following symptoms may go away or get better: ? Uncontrollable shaking (tremor). ? Sweating. ? Headache. ? Anxiety. ? Inability to relax (agitation). ? Trouble sleeping (insomnia). ? Irregular heartbeats (palpitations). ? Alcohol cravings. ? Seizure. The following symptoms may get worse 24???48 hours after a person has decreased or stopped alcohol use, and they may gradually improve over a period of days or weeks: ? Nausea and vomiting. ? Fatigue. ? Sensitivity to light and sounds. ? Confusion and inability to think clearly. ? Loss of appetite. ? Mood swings, irritability, depression, and anxiety. ? Insomnia and nightmares. The following symptoms are severe and life-threatening. When these symptoms occur together, they are called delirium tremens (DTs): ? High blood pressure. ? Increased heart rate. ? Trouble breathing. ? Seizures. These may go away along with other symptoms, or they may persist. ? Seeing, hearing, feeling, smelling, or tasting things that are not there (hallucinations). If you experience hallucinations, they usually begin 12???24 hours after a change in drinking patterns. Delirium tremens requires immediate hospitalization. How is this diagnosed? This condition may be diagnosed based on: ? Your symptoms and medical history. ? Your history of alcohol use. Your health care provider may ask questions about your drinking behavior. It is important to be honest when you answer these questions. ? A psychological assessment. ? A physical exam. ? Blood tests or urine tests to measure blood alcohol level and to rule out other causes of symptoms. ? MRI or CT scan. This may be done if you seem to have abnormal thinking or behaviors (altered mentalstatus). Diagnosis can be difficult. People going through withdrawal often avoid seeking medical care and are not thinking clearly. Friends and family members play an important role in recognizing symptoms and encouraging loved ones to get treatment. How is this treated? Most people with symptoms of withdrawal can be treated outside of a hospital setting (outpatient treatment), with close monitoring such as daily check-ins with a health care provider and counseling. You may need treatment at a hospital or treatment center (inpatient treatment) if: ? You have a history of delirium tremens or seizures. ? You have severe symptoms. ? You are addicted to other drugs. ? You cannot swallow medicine. ? You have a serious medical condition such as heart failure. ? You experienced withdrawal in the past but then you continued drinking alcohol. ? You are not likely to commit to an outpatient treatment schedule. Treatment may involve: ? Monitoring your blood pressure, pulse, and breathing. ? IV fluids to keep you hydrated. ? Medicines to reduce withdrawal symptoms and discomfort (benzodiazepines). ? Medicine to reduce anxiety. ? Medicine to prevent or control seizures. ? Multivitamins and B vitamins. ? Having a health care provider check on you daily. It is important to get treatment for alcohol withdrawal early. Getting treatment early can: ? Speed up your recovery from withdrawal symptoms. ? Make you more successful with long-term stoppage of alcohol use (sobriety). If you need help to stop drinking, your health care provider may recommend a long-term treatment plan that includes: ? Medicines to help treat alcohol use disorder. ? Substance abuse counseling. ? Support groups. Follow these instructions at home: ? Take gbej-iau-bbunwch and prescription medicines (including vitamin supplements) only as told by your health care provider. ? Do not drink alcohol. ? Do not drive until your health care provider approves. ? Have someone you trust stay with you or be available if you need help with your symptoms or with not drinking. ? Drink enough fluid to keep your urine pale yellow. ? Consider joining an alcohol support group or treatment program. These can provide emotional support, advice, and guidance. ? Keep all follow-up visits as told by your health care provider. This is important. Contact a health care provider if: ? Your symptoms get worse instead of better. ? You cannot eat or drink without vomiting. ? You are struggling with not drinking alcohol. ? You cannot stop drinking alcohol. Get help right away if: ? You have an irregular heartbeat. ? You have chest pain. ? You have trouble breathing. ? You have a seizure for the first time. ? You hallucinate. ? You become very confused. Summary ? Alcohol withdrawal is a group of symptoms that can develop when a person who drinks heavily and regularly stops drinking or drinks less. ? Symptoms of this condition can be mild to moderate, or they can be severe. ? Treatment may include hospitalization, medicine, and counseling. This information is not intended to replace advice given to you by your health care provider. Make sure you discuss any questions you have with your health care provider. Document Revised: 09/27/2022 Document Reviewed: 09/24/2021 [employer] Patient Education ?? 2022 [employer] Tests Performed Medications and Immunizations Administered Given Sodium Chloride 0.9%, 1000 mL, IV Bolus thiamine 500 mg + folic acid 1 mg + Sodium Chloride 0.9% 1,000 mL, IV Lab Test Name Test Result Date/Time pH Priyank 7.43 pH unit(s) 08/28/2023 10:32 EDT pCO2 Priyank 45.0 mmHg 08/28/2023 10:32 EDT HCO3 Venous 29.9 mmol/L 08/28/2023 10:32 EDT CO2 Total Venous 31.3 mmol/L 08/28/2023 10:32 EDT WBC 10.9 K/mcL 08/28/2023 10:32 EDT RBC 5.42 Million/mcL 08/28/2023 10:32 EDT Hgb 17.9 g/dL 08/28/2023 10:32 EDT Hct 50.6 % 08/28/2023 10:32 EDT MCV 93.4 fL 08/28/2023 10:32 EDT MCH 33.0 pg 08/28/2023 10:32 EDT MCHC 35.4 g/dL 08/28/2023 10:32 EDT RDW-CV 11.3 % 08/28/2023 10:32 EDT Platelets 174 K/mcL 08/28/2023 10:32 EDT MPV 9.9 fL 08/28/2023 10:32 EDT Neutro Auto 74.8 % 08/28/2023 10:32 EDT Lymph Auto 18.2 % 08/28/2023 10:32 EDT Emanuel Auto 5.7 % 08/28/2023 10:32 EDT Eos, Auto 0.40 % 08/28/2023 10:32 EDT Basophil Auto 0.7 % 08/28/2023 10:32 EDT Imm Gran Auto 0.2 % 08/28/2023 10:32 EDT Neutro Absolute 8.1 K/mcL 08/28/2023 10:32 EDT Lymph Absolute 2.0 K/mcL 08/28/2023 10:32 EDT Emanuel Absolute 0.6 K/mcL 08/28/2023 10:32 EDT Eos Absolute 0.0 K/mcL 08/28/2023 10:32 EDT Baso Absolute 0.1 K/mcL 08/28/2023 10:32 EDT Imm Gran Absolute 0.02 K/mcL 08/28/2023 10:32 EDT Prothrombin Time 9.4 seconds 08/28/2023 10:32 EDT INR 0.9 08/28/2023 10:32 EDT Partial Thromboplastin Time 26.7 seconds 08/28/2023 10:32 EDT Sodium Level 132 mmol/L 08/28/2023 11:22 EDT Potassium Level 3.9 mmol/L 08/28/2023 11:22 EDT Chloride Level 97 mmol/L 08/28/2023 11:22 EDT CO2 26 mmol/L 08/28/2023 11:22 EDT Alk Phos 68 IntlUnit/L 08/28/2023 11:22 EDT AST 69 IntlUnit/L 08/28/2023 11:22 EDT ALT 65 IntlUnit/L 08/28/2023 11:22 EDT BUN 8 mg/dL 08/28/2023 11:22 EDT Glucose Level 109 mg/dL 08/28/2023 11:22 EDT Creatinine Level 0.85 mg/dL 08/28/2023 11:22 EDT BUN/Creat Ratio 9.4 08/28/2023 11:22 EDT eGFR CKD-EPI 113 mL/min/1.73 m2 08/28/2023 11:22 EDT Calcium Level 9.1 mg/dL 08/28/2023 11:22 EDT Protein Total 6.5 g/dL 08/28/2023 11:22 EDT Albumin Level 3.9 g/dL 08/28/2023 11:22 EDT Globulin 2.6 g/dL 08/28/2023 11:22 EDT A/G Ratio 1.5 g/dL 08/28/2023 11:22 EDT Bilirubin Total 1.0 mg/dL 08/28/2023 11:22 EDT Bilirubin Direct 0.1 mg/dL 08/28/2023 11:22 EDT Anion Gap 9.0 08/28/2023 11:22 EDT Lipase Level 39 unit/L 08/28/2023 11:22 EDT Magnesium Level 1.9 mg/dL 08/28/2023 11:22 EDT Osmolality 263 mOsm/kg 08/28/2023 11:22 EDT U Amph Scrn NEG 08/28/2023 10:32 EDT U Aleyda Scrn NEG 08/28/2023 10:32 EDT U Benzodia Scrn NEG 08/28/2023 10:32 EDT U Buprenorph Scr NEG 08/28/2023 10:32 EDT U Cocaine Scrn NEG 08/28/2023 10:32 EDT U TCA Scr NEG 08/28/2023 10:32 EDT U THC Scr NEG 08/28/2023 10:32 EDT U mAMP Scr NEG 08/28/2023 10:32 EDT U Methadone Scr NEG 08/28/2023 10:32 EDT U Opiate Scrn NEG 08/28/2023 10:32 EDT U Oxy Scrn NEG 08/28/2023 10:32 EDT U PCP Scrn NEG 08/28/2023 10:32 EDT U PPX Scr NEG 08/28/2023 10:32 EDT Urine Srce Clean Catch 08/28/2023 10:32 EDT UA Color YELLOW. 08/28/2023 10:32 EDT UA Appear CLEAR. 08/28/2023 10:32 EDT UA Glucose NEGATIVE 08/28/2023 10:32 EDT UA Bili NEGATIVE 08/28/2023 10:32 EDT UA Ketones 15 08/28/2023 10:32 EDT UA Spec Grav 1.010 08/28/2023 10:32 EDT UA Blood NEGATIVE 08/28/2023 10:32 EDT UA pH 7.00 08/28/2023 10:32 EDT UA Protein TRACE 08/28/2023 10:32 EDT UA Urobilinogen 0.2 08/28/2023 10:32 EDT UA Nitrite NEGATIVE 08/28/2023 10:32 EDT UA Leuk Est NEGATIVE 08/28/2023 10:32 EDT Patient/Family Medicine Physician Signature Patient Name:KARON PADILLA I have received this information and my questions have been answered. Patient/Family Medicine Physician Name: Patient/Family Medicine Physician Signature: Relationship to Patient: Witness Name/Signature: Date: Electronically Signed on: 08/28/2023 12:33 EDTSigned by:XAVI Patient Care team information Care Team Personnel Name: Ambreen Montague Position: Nurse Member Role: ED Nurse Name: Aaron Keller DO Position: Physician Member Role: Admitting Physician Address: Address: [address] [place] [id number] [place] Care Team Related Persons Name: CAROLYN PADILLA Name: RADHA PADILLA
[2024-06-23 21:21] LABS: Abs Immature Grans 0.03 10^3/uL (0.0-0.06); Absolute Basophil Count 0.09 10^3/uL (0.0-0.2); Absolute Eosinophil Count 0.25 10^3/uL (0.0-0.7); Absolute Lymphocyte Count 2.79 10^3/uL (1.2-3.4); Absolute Monocyte Count 0.77 10^3/uL (0.1-0.8); Absolute Neutrophil Count 4.02 10^3/uL (1.2-6.7); Basophils % 1.1 %; Eosinophils % 3.1 %; HCT 47.4 % (40.0-50.0); HGB 16.3 g/dL (13.5-17.5); Immature Grans % 0.4 %; Lymphocytes % 35.1 %; MCH 33.3 pg (27.0-33.0); MCHC 34.4 % (32.0-36.0); MCV 97 fL (80-95); MPV 9.5 fL (8.0-11.0); Monocytes % 9.7 %; Neutrophils % 50.6 %; Platelet Count 236 10^3/uL (130-400); RBC 4.89 10^6/uL (4.36-5.78); RDW 12.3 % (11.8-14.1); RDW-SD 43.8 fL; WBC 7.95 10^3/uL (4.4-10.8)
[2024-06-23 21:50] LABS: ALT 58 U/L (16-63); AST 29 U/L (15-37); Albumin 4.2 g/dL (3.4-5.0); Alkaline Phosphatase 73 U/L (46-116); Anion Gap 11.8 mmol/L (3-11); BUN 6 mg/dL (7-18); Bilirubin, Total 0.53 mg/dL (0.2-1.0); CO2 26.2 mmol/L (21.0-32.0); CREATININE 0.8 mg/dL (0.70-1.30); Calculated LDL 104 mg/dL (<100); Chloride 102 mmol/L (98-107); Cholesterol 186 mg/dL (<200); Estimated GFR 114.74 (mL/min/1.73m2); Glucose 82 mg/dL (74-106); HDL Cholesterol 48 mg/dL (40-60); Magnesium 1.9 mg/dL (1.8-2.4); Potassium 4.2 mmol/L (3.5-5.1); Sodium 140 mmol/L (136-145); Total Protein 7.2 g/dL (6.4-8.2); Triglyceride 171 mg/dL (<150)
== END 2024-06-23 18:07 | disposition home or self-care (01) ==
LOC: NCHCN 18:06
PROVIDERS: PCP Family Medicine; Visit Provider Family Medicine
DX: F10.10 Alcohol abuse, uncomplicated (principal); E78.2 Mixed hyperlipidemia
CPT/HCPCS: 80053; 80061; 83735; 85025

== ENCOUNTER 2024-06-28 02:05 | Outpatient (CLI) | payer MEDICAID, SELFPAY ==
--- NOTE | 2024-06-28 08:20 | DI.US_ITS ---
Exam(s) US SOFT TISSUE HEAD OR NECK EXAM: US SOFT TISSUE HEAD OR NECK CLINICAL HISTORY: R22.9 Localized swelling,mass,lump, unspecified. TECHNIQUE: Ultrasound was performed using standard protocol. COMPARISON: CT CT FACIAL W from 03/16/2024 FINDINGS: Sonographic assessment utilizing grayscale and color Doppler imaging was performed and targeted to th e area of clinical concern. There is a 1.9 x 0.4 x 2.0 cm hyperechoic well-circumscribed avascular mass in the soft tissues of th e forehead. This corresponds to a fat density mass seen overlying the right frontal bone on the CT s can of the face from 03/16/2024. The finding is most consistent with a lipoma. 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 DATA REPOSITORY:
== END 2024-06-28 02:25 ==
LOC: DI 02:06
PROVIDERS: PCP Family Medicine; Visit Provider Family Medicine
DX: D17.0 Benign lipomatous neoplasm of skin and subcutaneous tissue of head, face and neck (principal)
CPT/HCPCS: 76536

== ENCOUNTER 2024-09-07 08:11 | Outpatient (REF) | payer MEDICAID, SELFPAY ==
--- NOTE | 2024-09-07 07:48 | SKI_PTH ---
PATIENT: Messi Rossi LOC: [facility] U#:[id number] AGE/SX: 38/M ROOM: RE09/07/[address]: Inocencio Carrasco MD : [id number] BED: DIS: 09/07/2024 SPEC #: [id number] RECD: 09/07/24 12:46 STATUS: [facility] REQ #: [id number] MUNIRA: 09/07/24 07:[address]: Inocencio Carrasco DEPT: Surgical Specimen RECD BY: Klarissa Alvarez ENTERED: 09/07/24 12:47 SP TYPE: SKI OTHR DR: Darleen Gaitan Tissues: 1 - SKIN BIOPSY(SHAVE/PUNCH) Procedures: GROSS AND MICRO LEVEL 3 Comments: [id number]
== END 2024-09-07 08:12 | disposition home or self-care (01) ==
LOC: LBN 08:11
PROVIDERS: PCP Family Medicine; Visit Provider Otolaryngology
DX: R22.0 Localized swelling, mass and lump, head (principal)
CPT/HCPCS: 88304; 88305

== ENCOUNTER 2024-10-29 10:20 | Outpatient (CLI) | payer MEDICAID, SELFPAY ==
--- NOTE | 2024-10-29 | DI.RAD_ITS ---
Exam(s) XR CERVICAL SPINE COMP 4-5V EXAM: XR CERVICAL SPINE COMP 4-5V CLINICAL HISTORY: NECK PAIN, M54.2. TECHNIQUE: 2D digital imaging was performed. COMPARISON: No exams were available for comparison FINDINGS: Five views No evidence of fracture, listhesis, nor offset of the spinal laminar line. There is some reversal of the normal curvature which is probably related to muscle spasm. There is mild-moderate disc space narrowing and anterior osseous lipping at C5-6 level. Other disc s paces exhibit normal height. There are no prominent Luschka joint osteophytes. There are no cervica l ribs. Bone density normal. No osseous lesions. IMPRESSION: Degenerative disc disease C5-6 level. DATA REPOSITORY: RADIATION DOSE DELIVERED:
== END 2024-10-29 10:40 ==
LOC: DI 10:21
PROVIDERS: PCP Family Medicine; Visit Provider Family Medicine
DX: M50.122 Cervical disc disorder at C5-C6 level with radiculopathy (principal)
CPT/HCPCS: 72050

== ENCOUNTER 2025-02-02 11:52 | Outpatient (CLI) | payer MEDICAID, SELFPAY ==
--- NOTE | 2025-02-02 | DI.RAD_ITS ---
Exam(s) XR RIBS RT PA CHEST 3V CLINICAL HISTORY: Pleurodynia, R07.81. COMPARISON: CR,XR XR CHEST 2V PA LATERAL from 08/26/2020 TECHNIQUE:: PA view of the chest and four views of the right ribs were performed. FINDINGS: LUNGS:Clear. No pleural abnormality seen. HEART: Normal. MEDIASTINUM: Normal. BONES: No displaced rib fracture is seen. No bony destructive lesion is seen. OTHER FINDINGS: None. IMPRESSION: 1. Unremarkable radiographic appearance of the right ribs. 2. No acute pulmonary findings.
== END 2025-02-02 12:12 ==
PROVIDERS: PCP Family Medicine; Visit Provider Physician Assistant Medical
DX: R07.81 Pleurodynia (principal)
CPT/HCPCS: 71046; 71100

== ENCOUNTER 2025-02-10 01:09 | Outpatient (CLI) | payer MEDICAID, SELFPAY ==
--- NOTE | 2025-02-10 | DI.CT_ITS ---
Exam(s) CT ABDOMEN PELVIS W EXAM: CT ABDOMEN PELVIS W CLINICAL HISTORY: RT SIDED ABD PAIN,R10.9,GUARDING RT SIDE UPPER.. TECHNIQUE: Imaging Protocol: Axial computed tomography images with coronal and sagittal reformatted images were created and reviewed CONTRAST MATERIAL: Intravenous: Omnipaque 350 Contrast volume:100 ml Oral: yes 900 mL COMPARISON: CT CT ABDOMEN PELVIS W from 08/23/2020 FINDINGS: ABDOMEN and PELVIS: Lung Bases: No acute findings. Liver: Enlarged at 20 cm in length. Moderate hepatic steatosis. No suspicious mass. Gallbladder and biliary tract: No radiodense calculus. No wall thickening or pericholecystic fluid. No biliary dilation. Pancreas: Normal density. No abnormal calcifications or inflammatory process. No evidence of mass. Spleen: Normal. Kidneys: Normal size, contour and axis. No radiodense stones. No obstructive uropathy. No suspicious masses seen. Adrenal glands: No masses seen. Vasculature: Abdominal aorta non-dilated. Soft tissues: Tiny fat containing hernia above the umbilicus. Tiny fat containing umbilical hernia. Bladder: Mild wall thickening, similar to prior.. No calculi.No focal mass. Bowel: No obstruction. No bowel wall thickening. Status post appendectomy. Normal quantity of sto ol. Peritoneal cavity: No ascites. No focal collection. No mesenteric inflammatory response. No free air . Bones: Unremarkable for age. Reproductive organs: Unremarkable. Lymph nodes: No pathologically enlarged lymph nodes. IMPRESSION:: No acute abnormality in the abdomen or pelvis. RADIATION DOSE DELIVERED: Total DLP DATA REPOSITORY: All CT scans at this facility are submitted to the National Radiology Data Registry (NRDR) Dose Index Registry (DIR) with the [employer] ([employer]). RADIATION OPTIMIZATION: All CT scans at this facility use at least one of these dose optimization te chniques: automated exposure control; mA and/or kV adjustment per patient size (includes targeted exa ms where dose is matched to clinical indication); or iterative reconstruction.
[2025-02-10] MEDS: Barium Sulfate 2% W/V-Berry Smoothie 450 ML BTL PO ×2 (14:18→14:19)
[2025-02-10] MEDS: Omnipaque 350 MG/ML 100 ML BTL IJ (14:58)
[2025-02-10] MEDS: Normal Saline - Diluent 50 ML VIAL IJ (14:59)
== END 2025-02-10 01:29 ==
LOC: DI 01:09
PROVIDERS: PCP Family Medicine; Visit Provider Family Medicine
DX: R10.9 Unspecified abdominal pain (principal)
CPT/HCPCS: 74177; J3490